=== PATIENT | male | born 1925 | race Caucasian/White ===

== ENCOUNTER 2016-04-24 15:09 | Emergency (ER) | payer MEDICARE, BC ==
[~2016-04-24] VITALS: Ht 182.9 cm; Wt 70.0 kg
[~2016-04-24 15:09] MED LIST: COUM2.5T PO; COUM5TAB PO; DIGO50SO PO; HYDR-3533 PO; NORV5TAB PO
[2016-04-24 15:15] VITALS: BP 136/79; PULSE 72; RESP 16; TEMP 98.1; O2SAT 98
[2016-04-24] MEDS ORDERED: PIPERACIL-TAZO 4.5 GM PREMIX 100 ML IV STA (15:26)
[2016-04-24] MEDS ORDERED: UNKNOWN MEDS (15:26)
[2016-04-24] MEDS ORDERED: COUMADIN (15:26)
--- NOTE | 2016-04-24 15:37 | PD ---
HPI . Swelling of his left foot and lower leg Chief Complaint: Edema Time Seen by Provider: 15:21 Travel History International Travel<30 days: No Contact w/Intl Traveler<30days: No Traveled to known affect area: No History of Present Illness HPI Patient presents with a one-week history of swelling of his left foot and lower leg. There is also a sore on the dorsum of the left foot this been there for about a week. Been draining serous fluid. He denies associated fever. He denies any chest pain or shortness of breath. He reports a similar history about a month ago except that there was no sore on the foot at that time. His leg was just red and swollen. He was treated with Keflex with excellent results. He did well following the antibiotic treatment until a week ago when his symptoms recurred. [facility] Past Medical History Hx Anticoagulant Therapy: Yes Cardiovascular Problems: Yes Diminished Hearing: Yes Hypertension: Yes Immunizations Current: Yes Past Surgical History Genitourinary Surgery: Yes (prostate) Social History Alcohol Use: No Tobacco Use: No (QUIT) Substance Use: No Allergies-Medications (Allergen,Severity, Reaction): Coded Allergies: No Known Allergies (Unverified , 04/24/16) Reported Meds & Prescriptions Reported Meds & Active Scripts Active Reported [Unknown Meds] Unknown Dose [Coumadin] Unknown Dose Review of Systems Except as stated in HPI: all other systems reviewed are Neg General / Constitutional: No: Fever, Chills Cardiovascular: No: Chest Pain or Discomfort Respiratory: No: Shortness of Breath Gastrointestinal: No: Nausea, Vomiting, Diarrhea Musculoskeletal: Positive: Edema Skin: Positive Change in Pigmentation Physical Exam Narrative GENERAL: Healthy-appearing older man who is in no acute distress. SKIN: Warm and dry. The skin of the dorsum of the left foot is red and warm. The redness extends proximally into the left ankle area. There is an ulcerative lesion on the dorsum of the left foot draining serous fluid. HEAD: Atraumatic. Normocephalic. EYES: Pupils equal and round. ENT: No nasal bleeding or discharge. Mucous membranes pink and moist. NECK: Trachea midline. CARDIOVASCULAR: Regular rate and rhythm. RESPIRATORY: No accessory muscle use. GASTROINTESTINAL: Abdomen soft, non-tender, nondistended. MUSCULOSKELETAL: No obvious deformities. Some swelling of the left lower extremity. NEUROLOGICAL: Awake and alert. No obvious cranial nerve deficits. Motor grossly within normal limits. Normal speech. PSYCHIATRIC: Appropriate mood and affect; insight and judgment normal. Data Data Last Documented VS Vital Signs Date Time Temp Pulse Resp B/P Pulse Ox O2 Delivery O2 Flow Rate FiO2 04/24/16 15:15 98.1 72 16 136/79 98 Orders Complete Blood Count With Diff (04/24/16 15:26) Comprehensive Metabolic Panel (04/24/16 15:) Lactic Acid Sepsis Protocol (04/24/16 15:) Blood Culture (04/24/16 15:) Iv Access Insert/Monitor (04/24/16 15:26) Piperacil-Tazo 4.5 Gm Premix (Zosyn 4.5 (04/24/16 15:26) Us Leg Venous Doppler (04/24/16 15:29) MDM Medical Decision Making Medical Screen Exam Complete: Yes Emergency Medical Condition: Yes Differential Diagnosis My differential diagnosis includes but is not limited to localized wound infection, cellulitis, abscess, DVT Narrative Course Patient presents for evaluation of a swollen and erythematous left lower extremity. His care is being turned over to Dr. Sifuentes. Nnacy Sadler MD Apr 24, 2016 15:37
[2016-04-24 15:45] LABS: AUTOMATED NEUTROPHIL # 4.8 TH/MM3 (1.8-7.7); BASOPHIL % 0.7 % (0.0-2.0); EOSINOPHIL % 0.6 % (0.0-4.0); HEMATOCRIT 37.8 % (39.0-51.0); HEMO FLAGS DIFF FINAL; LYMPH % 20.2 % (9.0-44.0); LYMPHOCYTE # 1.4 TH/MM3 (1.0-4.8); MEAN CELL VOLUME 92.6 FL (80.0-100.0); MEAN CORPUSCULAR HEMOGLOBIN 30.8 PG (27.0-34.0); MEAN CORPUSCULAR HGB CONC 33.3 % (32.0-36.0); NEUT % 68.5 % (16.0-70.0); PLATELET COUNT 385 TH/MM3 (150-450); RED BLOOD COUNT 4.08 MIL/MM3 (4.50-5.90); RED CELL DISTRIBUTION WIDTH 13.3 % (11.6-17.2); WHITE BLOOD COUNT 6.9 TH/MM3 (4.0-11.0)
[2016-04-24 15:55] LABS: CHLORIDE 106 MEQ/L (98-107); POTASSIUM 3.1 MEQ/L (3.5-5.1); SODIUM (NA) 146 MEQ/L (136-145)
[2016-04-24 15:58] LABS: ANION GAP 10 MEQ/L (5-15); BICARBONATE 29.7 MEQ/L (21.0-32.0)
[2016-04-24 15:59] LABS: BLOOD UREA NITROGEN 13 MG/DL (7-18)
[2016-04-24 16:01] LABS: ALT (GPT) 17 U/L (12-78)
[2016-04-24 16:02] LABS: AST (GOT) 15 U/L (15-37); GLOMERULAR FILTRATION RATE 57 ML/MIN (>89)
[2016-04-24 16:03] LABS: TOTAL BILIRUBIN ADULT 0.7 MG/DL (0.2-1.0)
[2016-04-24 16:04] LABS: ALKALINE PHOSPHATASE 116 U/L (45-117)
[2016-04-24] MEDS ORDERED: VANCOMYCIN INJ 1,000 MG in SODIUM CHLOR 0.9% 250 ML INJ 250 ML IV ONE (16:15)
[2016-04-24] MEDS ORDERED: LIDOCAINE 1%/EPINEPHrine 1:100,000 SOLN 20 ML VIAL INFIL ONE (16:15)
--- NOTE | 2016-04-24 16:31 | PD ---
Physical Exam Narrative Patient was seen any physician and signed out to me. Patient states that he has history of irregular heartbeats and on Coumadin and digoxin. Examination of the left foot shows redness swelling induration with an ulcer lesion dorsal aspect left foot. No discharge noted. Data Data Last Documented VS Vital Signs Date Time Temp Pulse Resp B/P Pulse Ox O2 Delivery O2 Flow Rate FiO2 04/24/16 15:15 98.1 72 16 136/79 98 Orders Complete Blood Count With Diff (04/24/16 15:26) Comprehensive Metabolic Panel (04/24/16 15:26) Lactic Acid Sepsis Protocol (04/24/16 15:26) Blood Culture (04/24/16 15:26) Iv Access Insert/Monitor (04/24/16 15:26) Piperacil-Tazo 4.5 Gm Premix (Zosyn 4.5 (04/24/16 15:26) Us Leg Venous Doppler (04/24/16 15:29) Prothrombin Time / Inr (Pt) (04/24/16 16:11) Act Partial Throm Time (Ptt) (04/24/16 16:11) Wound Culture And Gram Stain (04/24/16 16:11) Vancomycin Inj (Vancomycin Inj) (04/24/16 16:15) Lidocai-Epi 1%-1:100,000 Inj (Xylocaine- (04/24/16 16:15) Digoxin (04/24/16 16:32) Labs Laboratory Tests Test 04/24/16 04/24/16 15:35 16:15 White Blood Count 6.9 TH/MM3 Red Blood Count 4.08 MIL/MM3 Hemoglobin 12.6 GM/DL Hematocrit 37.8 % Mean Corpuscular Volume 92.6 FL Mean Corpuscular Hemoglobin 30.8 PG Mean Corpuscular Hemoglobin 33.3 % Concent Red Cell Distribution Width 13.3 % Platelet Count 385 TH/MM3 Mean Platelet Volume 7.3 FL Neutrophils (%) (Auto) 68.5 % Lymphocytes (%) (Auto) 20.2 % Monocytes (%) (Auto) 10.0 % Eosinophils (%) (Auto) 0.6 % Basophils (%) (Auto) 0.7 % Neutrophils # (Auto) 4.8 TH/MM3 Lymphocytes # (Auto) 1.4 TH/MM3 Monocytes # (Auto) 0.7 TH/MM3 Eosinophils # (Auto) 0.0 TH/MM3 Basophils # (Auto) 0.0 TH/MM3 CBC Comment DIFF FINAL Differential Comment Sodium Level 146 MEQ/L Potassium Level 3.1 MEQ/L Chloride Level 106 MEQ/L Carbon Dioxide Level 29.7 MEQ/L Anion Gap 10 MEQ/L Blood Urea Nitrogen 13 MG/DL Creatinine 1.20 MG/DL Estimat Glomerular Filtration 57 ML/MIN Rate Random Glucose 105 MG/DL Lactic Acid Level 1.1 mmol/L Calcium Level 9.0 MG/DL Total Bilirubin 0.7 MG/DL Aspartate Amino Transf 15 U/L (AST/SGOT) Alanine Aminotransferase 17 U/L (ALT/SGPT) Alkaline Phosphatase 116 U/L Total Protein 7.1 GM/DL Albumin 3.4 GM/DL Digoxin Level 0.7 NG/ML Prothrombin Time 32.7 SEC Prothromb Time International 2.8 RATIO Ratio Activated Partial 36.4 SEC Thromboplast Time MDM Supervised Visit with BEVERLY: No Interpretation(s) Last Impressions Lower Extremity Ultrasound 04/24/16 1529 Signed Impressions: Service Date/Time: Sunday, April 24, 2016 16:29 - CONCLUSION: Normal examination. Eren Miller Jr., MD 1735 PM. CBC within normal limit. Sodium 146. Potassium 3.1. Lactic acid 1.1. INR 2.8. Digoxin 0.7. Narrative Course I&D left foot abscess. Dressing applied. Procedures Procedure Narrative I&D left foot Procedure note: 1% lidocaine with epinephrine local anesthesia. Betadine wash. Small incision was made with #11 scalpel. A small mild of pus obtained. Wound culture obtained. Dressing applied. Diagnosis Primary Impression: Foot abscess, left Patient Instructions: General Instructions Additional Instruction: Take medications as directed. Wound care daily. Keep foot elevated. Follow- up with local physician in 2 days for wound check and repeated INR. Have INR check frequently while on antibiotic. Med/Other Pt SpecificInfo: Prescription(s) given Scripts Clindamycin 150 Mg Cap2 Tab PO Q6H #80 CAP Prov:Jayme Sifuentes MD 04/24/16 Sulfamethoxazole-Trimethoprim (Bactrim DS)800-160 Mg Tab1 Tab PO BID #20 TAB Prov:Jayme Sifuentes MD 04/24/16 Disposition: 01 DISCHARGE HOME Condition: Stable Jayme Sifuentes MD Apr 24, 2016 16:31
[2016-04-24] MEDS ORDERED: BACT800T5 PO (16:34)
[2016-04-24] MEDS ORDERED: CLIN1CAP5 PO (16:34)
[2016-04-24 16:35] LABS: APTT (PATIENT) 36.4 SEC (24.3-30.1); INTERNATIONAL NORMALIZED RATIO 2.8 RATIO; PROTHROMBIN TIME - PATIENT 32.7 SEC (9.8-11.6)
--- NOTE | 2016-04-24 16:54 | RADHPO ---
EXAM DATE/TIME: 04/24/2016 16:29 [facility] COMPARISON: No previous studies available for comparison. EXTERNAL COMPARISON : [facility], US LEG, LEFT VENOUS DOPPLER, March 18, 2016 INDICATIONS : Left leg pain, cellulitis. MEDICAL HISTORY : Hypertension. Anticoagulant therapy. SURGICAL HISTORY : None. ENCOUNTER: Subsequent ACUITY: 2 day PAIN SCORE: 5/10 LOCATION: Left leg. TECHNIQUE: Venous ultrasound of the leg was performed from the inguinal ligament to the proximal calf. Real-lillie e, color Doppler and spectral tracing, compression and augmentation techniques were used. FINDINGS: There is normal compressibility of the deep venous system from the inguinal region to the proximal ca lf. No echogenic clot is seen in the lumen of the common femoral, femoral, popliteal, and posterior tibial veins. There is a normal response of the venous system to proximal and distal augmentation an d respiration. CONCLUSION: Normal examination. Eren Miller Jr., MD on April 24, 2016 at 16:51 Board Certified Radiologist. This report was verified electronically.
== END 2016-04-24 18:08 | disposition home or self-care (01) ==
LOC: PHED 15:09
DX: Z79.01 Long term (current) use of anticoagulants (principal); I10 Essential (primary) hypertension; L02.612 Cutaneous abscess of left foot
CPT/HCPCS: 10060; 80053; 80162; 83605; 85025; 85610; 85730; 86403; 87040; 87070; 87077; 87186; 87205; 93971; 96365; 99284; J2543

== ENCOUNTER 2016-04-27 09:53 | Emergency (ER) | payer MEDICARE, BC ==
[~2016-04-27] VITALS: Ht 182.9 cm; Wt 71.0 kg
[~2016-04-27 09:53] MED LIST changes: +BACT800T5 PO; +CLIN1CAP5 PO; -COUM2.5T PO; -COUM5TAB PO; +COUMADIN; -DIGO50SO PO; -HYDR-3533 PO; -NORV5TAB PO; +UNKNOWN MEDS
[2016-04-27 10:04] VITALS: BP 124/59; PULSE 63; RESP 16; TEMP 98.2; O2SAT 97
[2016-04-27] MEDS ORDERED: COUM1TAB PO (10:12)
--- NOTE | 2016-04-27 10:35 | PD ---
HPI . Recheck of cellulitis Chief Complaint: Wound/Suture/Staple Re-Check Time Seen by Provider: 10:28 Travel History International Travel<30 days: No Contact w/Intl Traveler<30days: No Traveled to known affect area: No History of Present Illness HPI Patient is here for recheck of cellulitis in the left foot. He was seen here 2 days ago for same and was placed on clindamycin and Septra. His foot is much improved. His main question is whether or not he should shower. They are also questioning whether or not it needs to be covered and whether or not they need to be putting any medication on it. PFSH Past Medical History Hx Anticoagulant Therapy: Yes Cardiovascular Problems: Yes Diminished Hearing: Yes Hypertension: Yes Immunizations Current: Yes Past Surgical History Genitourinary Surgery: Yes (prostate) Social History Alcohol Use: No Tobacco Use: No (QUIT) Substance Use: No Allergies-Medications (Allergen,Severity, Reaction): Coded Allergies: No Known Allergies (Unverified , 04/27/16) Reported Meds & Prescriptions Reported Meds & Active Scripts Active Clindamycin (Clindamycin HCl) 150 Mg Cap 2 Tab PO Q6H Bactrim DS (Sulfamethoxazole-Trimethoprim) 800-160 Mg Tab 1 Tab PO BID Reported Coumadin (Warfarin) 1 Mg Tab Unknown Dose PO DAILY Review of Systems General / Constitutional: No: Fever, Chills Skin: Positive Change in Pigmentation (the redness is improving.), Positive Lesions (the ulcerative lesion on the dorsum of his foot and has now scabbed over.) Physical Exam Narrative GENERAL: Awake and alert and in no acute distress. SKIN: Warm and dry. Scabbed lesion on the dorsal aspect of the left foot. He does have some erythema and warmth of the left foot and ankle but it is improved from 2 days ago. I did see him at that time. CARDIOVASCULAR: Regular rate and rhythm. RESPIRATORY: No accessory muscle use. MUSCULOSKELETAL: No obvious deformities. No edema. NEUROLOGICAL: Awake and alert. No obvious cranial nerve deficits. Motor grossly within normal limits. Normal speech. PSYCHIATRIC: Appropriate mood and affect; insight and judgment normal. Data Data Last Documented VS Vital Signs Date Time Temp Pulse Resp B/P Pulse Ox O2 Delivery O2 Flow Rate FiO2 04/27/16 10:04 98.2 63 16 124/59 97 MDM Medical Decision Making Medical Screen Exam Complete: Yes Emergency Medical Condition: Yes Differential Diagnosis My differential diagnosis includes but is not limited to localized wound infection, cellulitis, abscess Narrative Course Patient presents for recheck of cellulitis of the left. His foot and leg looked much improved today. Diagnosis Primary Impression: Cellulitis Qualified Code: L03.116 - Cellulitis of left lower extremity Additional Instructions: Continue current treatment. He may shower normally. He may use an over-the- counter antibiotic ointment such as Neosporin. Disposition: 01 DISCHARGE HOME Condition: Stable Nancy Sadler MD Apr 27, 2016 10:35
== END 2016-04-27 10:54 | disposition home or self-care (01) ==
LOC: PHEFT 09:53
DX: L03.116 Cellulitis of left lower limb (principal)
CPT/HCPCS: 99282

== ENCOUNTER 2016-05-08 15:05 | Emergency (ER) | payer MEDICARE, BC ==
[~2016-05-08] VITALS: Ht 182.9 cm; Wt 70.9 kg
[~2016-05-08 15:05] MED LIST changes: +COUM1TAB PO; -COUMADIN; -UNKNOWN MEDS
[2016-05-08 15:12] VITALS: BP 139/78; PULSE 61; RESP 16; TEMP 98; O2SAT 97
[2016-05-08] MEDS ORDERED: SODIUM CHLORIDE 0.9% FLUSH 5 ML FLUSH IVF PRN (16:15)
--- NOTE | 2016-05-08 16:16 | PD ---
HPI Chief Complaint: Edema Time Seen by Provider: 16:00 Travel History International Travel<30 days: No Contact w/Intl Traveler<30days: No Traveled to known affect area: No History of Present Illness HPI 89-year-old male here for evaluation of left ankle and foot swelling. The patient was seen on 04/24/16 and had an I&D of an abscess on the dorsal aspect of his left foot. This grew out Serratia marcescens. The patient was discharged home with Bactrim and clindamycin and was seen in the emergency department 2 days later with improvement in symptoms. The patient also had a blood culture performed at this time which grew out staph hominis hominis. This is likely a contaminant. He has finished his course of antibiotics, and is concerned because his foot and ankle is still swollen with an area of redness on the dorsum of the foot. Patient is on Coumadin, however he is unable to tell me why he is on Coumadin. I contacted his primary care physician Dr. Zayas who tells me that he is on Coumadin because of a postoperative DVT. Patient denies fevers or chills. No chest pain or dyspnea. He denies pain in his left ankle or foot. No trauma. PFSH Past Medical History Hx Anticoagulant Therapy: Yes Cardiovascular Problems: Yes Diminished Hearing: Yes Hypertension: Yes Immunizations Current: Yes Past Surgical History Genitourinary Surgery: Yes (prostate) Social History Alcohol Use: No Tobacco Use: No (QUIT) Substance Use: No Allergies-Medications (Allergen,Severity, Reaction): Coded Allergies: No Known Allergies (Unverified , 05/08/16) Reported Meds & Prescriptions Reported Meds & Active Scripts Active Reported Coumadin (Warfarin) 1 Mg Tab Unknown Dose PO DAILY Review of Systems Except as stated in HPI: all other systems reviewed are Neg Physical Exam Narrative GENERAL: Well-developed, well-nourished, comfortable, no acute distress. SKIN: Warm and dry. Mild erythema to the dorsum of left foot, no red streaks, no induration, no fluctuance. HEAD: Atraumatic. Normocephalic. EYES: Pupils equal and round. No scleral icterus. No injection or drainage. ENT: Mucous membranes pink and moist. NECK: Trachea midline. No JVD. CARDIOVASCULAR: Regular rate and rhythm. Bilateral dorsalis pedis pulses are brisk and equal. RESPIRATORY: No accessory muscle use. Clear to auscultation. Breath sounds equal bilaterally. GASTROINTESTINAL: Abdomen soft, non-tender, nondistended. MUSCULOSKELETAL: No obvious deformities. No clubbing. No cyanosis. Bilateral foot and ankle edema, left greater than right. NEUROLOGICAL: Awake and alert. No obvious cranial nerve deficits. Motor grossly within normal limits. Normal speech. PSYCHIATRIC: Appropriate mood and affect; insight and judgment normal. Data Data Last Documented VS Vital Signs Date Time Temp Pulse Resp B/P Pulse Ox O2 Delivery O2 Flow Rate FiO2 05/08/16 17:25 Room Air 05/08/16 17:25 77 16 169/79 94 05/08/16 15:12 98.0 Orders Basic Metabolic Panel (Bmp) (05/08/16 16:07) Complete Blood Count With Diff (05/08/16 16:07) Prothrombin Time / Inr (Pt) (05/08/16 16:07) Act Partial Throm Time (Ptt) (05/08/16 16:07) Iv Access Insert/Monitor (05/08/16 16:07) Ecg Monitoring (05/08/16 16:07) Oximetry (05/08/16 16:07) Sodium Chloride 0.9% Flush (Ns Flush) (05/08/16 16:15) Us Leg Venous Doppler (05/08/16 ) Labs Laboratory Tests Test 05/08/16 16:23 White Blood Count 7.1 TH/MM3 Red Blood Count 4.18 MIL/MM3 Hemoglobin 12.8 GM/DL Hematocrit 39.2 % Mean Corpuscular Volume 93.8 FL Mean Corpuscular Hemoglobin 30.5 PG Mean Corpuscular Hemoglobin 32.5 % Concent Red Cell Distribution Width 14.1 % Platelet Count 244 TH/MM3 Mean Platelet Volume 7.6 FL Neutrophils (%) (Auto) 61.3 % Lymphocytes (%) (Auto) 27.0 % Monocytes (%) (Auto) 9.6 % Eosinophils (%) (Auto) 1.2 % Basophils (%) (Auto) 0.9 % Neutrophils # (Auto) 4.3 TH/MM3 Lymphocytes # (Auto) 1.9 TH/MM3 Monocytes # (Auto) 0.7 TH/MM3 Eosinophils # (Auto) 0.1 TH/MM3 Basophils # (Auto) 0.1 TH/MM3 CBC Comment DIFF FINAL Differential Comment Prothrombin Time 12.7 SEC Prothromb Time International 1.1 RATIO Ratio Activated Partial 27.5 SEC Thromboplast Time Sodium Level 142 MEQ/L Potassium Level 3.8 MEQ/L Chloride Level 104 MEQ/L Carbon Dioxide Level 29.3 MEQ/L Anion Gap 9 MEQ/L Blood Urea Nitrogen 16 MG/DL Creatinine 1.10 MG/DL Estimat Glomerular Filtration 63 ML/MIN Rate Random Glucose 94 MG/DL Calcium Level 9.2 MG/DL [facility] Medical Decision Making Medical Screen Exam Complete: Yes Emergency Medical Condition: Yes Differential Diagnosis Cellulitis, lymphedema, venous insufficiency, DVT Narrative Course Vital signs show heart rate 61, blood pressure 139/78, pulse ox 97% on room air , oral temp of 98F. CBC is unremarkable. BMP is unremarkable. INR is 1.1. Left lower extremity duplex is negative for DVT. Patient was made aware of all findings. He is resting comfortably. There is some mild erythema to the dorsum of his left foot. There is no warmth. I do not believe this infectious and is likely more secondary to the skin being stretched from his edema. He has no fever and has a normal WBC count. His vital signs are all within normal limits. My nurse who is assigned to this patient and had seen the patient during his previous 2 visits when he had an obvious cellulitis to his left lower extremity and reports to me that it is significantly improved. He will take a double dose of his Coumadin for the next 3 days. Case discussed with the patient's primary care physician Dr. Zayas shortly after he arrived to the emergency department. He would like the patient to call his office tomorrow morning to schedule an appointment for tomorrow afternoon. The patient was made aware of this plan. He was informed on when to return to the emergency department. He verbalizes understanding and agreement with plan. Diagnosis Primary Impression: Edema of left foot Referrals: Astrid Zayas MD 1 day Additional Instructions: Follow-up with your primary care physician Dr. Zayas tomorrow. Return to the emergency department for worsening symptoms or any other concerns. Disposition: 01 DISCHARGE HOME Condition: Stable Reagan Gee MD May 08, 2016 16:16
[2016-05-08 16:23] VITALS: BP 174/78; PULSE 60; RESP 16; O2SAT 97
[2016-05-08 16:27] LABS: AUTOMATED NEUTROPHIL # 4.3 TH/MM3 (1.8-7.7); BASOPHIL # 0.1 TH/MM3 (0-0.2); BASOPHIL % 0.9 % (0.0-2.0); EOSINOPHIL # 0.1 TH/MM3 (0-0.4); EOSINOPHIL % 1.2 % (0.0-4.0); HEMATOCRIT 39.2 % (39.0-51.0); HEMO FLAGS DIFF FINAL; LYMPHOCYTE # 1.9 TH/MM3 (1.0-4.8); MEAN CELL VOLUME 93.8 FL (80.0-100.0); MEAN CORPUSCULAR HEMOGLOBIN 30.5 PG (27.0-34.0); MEAN CORPUSCULAR HGB CONC 32.5 % (32.0-36.0); MONO % 9.6 % (0.0-8.0); NEUT % 61.3 % (16.0-70.0); PLATELET COUNT 244 TH/MM3 (150-450); RED BLOOD COUNT 4.18 MIL/MM3 (4.50-5.90); RED CELL DISTRIBUTION WIDTH 14.1 % (11.6-17.2); WHITE BLOOD COUNT 7.1 TH/MM3 (4.0-11.0)
[2016-05-08 16:35] LABS: POTASSIUM 3.8 MEQ/L (3.5-5.1)
[2016-05-08 16:38] LABS: BICARBONATE 29.3 MEQ/L (21.0-32.0)
[2016-05-08 16:39] LABS: APTT (PATIENT) 27.5 SEC (24.3-30.1); INTERNATIONAL NORMALIZED RATIO 1.1 RATIO; PROTHROMBIN TIME - PATIENT 12.7 SEC (9.8-11.6)
--- NOTE | 2016-05-08 17:21 | RADHPO ---
EXAM DATE/TIME: 05/08/2016 17:04 [facility] COMPARISON: US LEG LEFT VENOUS DOPPLER, April 24, 2016, 16:29. INDICATIONS : Left leg pain and swelling. MEDICAL HISTORY : Hypertension. SURGICAL HISTORY : Prostatectomy. ENCOUNTER: Initial ACUITY: 3 days PAIN SCORE: 2/10 LOCATION: Left leg. TECHNIQUE: Venous ultrasound of the leg was performed from the inguinal ligament to the proximal calf. Real-lillie e, color Doppler and spectral tracing, compression and augmentation techniques were used. FINDINGS: There is normal compressibility of the deep venous system from the inguinal region to the proximal ca lf. No echogenic clot is seen in the lumen of the common femoral, femoral, popliteal, and posterior tibial veins. There is a normal response of the venous system to proximal and distal augmentation an d respiration. CONCLUSION: 1. No evidence of deep venous thrombosis. Forest Alvarenga MD on May 08, 2016 at 17:19 Board Certified Radiologist. This report was verified electronically.
[2016-05-08 17:25] VITALS: BP 169/79; PULSE 77; RESP 16; O2SAT 94
== END 2016-05-08 18:20 | disposition home or self-care (01) ==
LOC: PHED 15:05
DX: R60.9 Edema, unspecified (principal); I10 Essential (primary) hypertension; H91.90 Unspecified hearing loss, unspecified ear; Z79.01 Long term (current) use of anticoagulants
CPT/HCPCS: 80048; 85025; 85610; 85730; 93971

== ENCOUNTER 2016-07-07 09:33 | Emergency (ER) | payer MEDICARE, BC ==
[~2016-07-07] VITALS: Ht 182.9 cm; Wt 73.5 kg
[~2016-07-07 09:33] MED LIST changes: -BACT800T5 PO; -CLIN1CAP5 PO
[2016-07-07 09:38] VITALS: BP 137/64; PULSE 68; RESP 15; TEMP 97.7; O2SAT 98
[2016-07-07] MEDS ORDERED: CEPH-460 PO (09:52)
[2016-07-07] MEDS ORDERED: BACT2OIN TOPICAL (09:52)
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
[2016-07-07] MEDS ORDERED: TETANUS/DIPHTHERIA TOXOID ADULT 0.5 ML VIAL IM ONE (10:00)
== END 2016-07-07 10:16 | disposition home or self-care (01) ==
LOC: PHEFT 09:33
DX: S50.811A Abrasion of right forearm, initial encounter (principal); Z79.01 Long term (current) use of anticoagulants; I10 Essential (primary) hypertension; Z87.891 Personal history of nicotine dependence
CPT/HCPCS: 99282

== ENCOUNTER 2016-07-11 10:01 | Emergency (ER) | payer MEDICARE, BC ==
[~2016-07-11] VITALS: Ht 182.9 cm; Wt 74.0 kg
[~2016-07-11 10:01] MED LIST changes: +BACT2OIN TOPICAL; +CEPH-460 PO
[2016-07-11 10:05] VITALS: BP 150/69; PULSE 64; RESP 16; TEMP 97.7; O2SAT 99
--- NOTE | 2016-07-11 10:40 | PD ---
HPI Chief Complaint: Wound/Suture/Staple Re-Check Time Seen by Provider: 10:36 Travel History International Travel<30 days: No Contact w/Intl Traveler<30days: No Traveled to known affect area: No History of Present Illness HPI 89-year-old male with history of recent visit for right arm wound, was put on Keflex, is here because he wanted to get the wound checked out. He stated that he has some itching in his back the other day, went to get that checked out as well because they had instructed him to do so should he develop any new symptoms. He denies any trouble breathing, coughing, facial swelling, rashes, or any other issues. Modifying Factors: None Associated Signs & Symptoms: Wound check Risk Factors: None PFSH Past Medical History Hx Anticoagulant Therapy: Yes (COUMADIN) Atrial Fibrillation: Yes Cardiovascular Problems: Yes Diminished Hearing: Yes Hypertension: Yes Immunizations Current: Yes Past Surgical History Genitourinary Surgery: Yes (prostate) Social History Alcohol Use: Yes Tobacco Use: No (QUIT) Substance Use: No Allergies-Medications (Allergen,Severity, Reaction): Coded Allergies: No Known Allergies (Unverified , 07/11/16) Reported Meds & Prescriptions Reported Meds & Active Scripts Active Bactroban Topical (Mupirocin) 2% Oint 1 Applic TOPICAL BID Keflex (Cephalexin) 500 Mg Cap 500 Mg PO Q6H 7 Days Reported Coumadin (Warfarin) 1 Mg Tab Unknown Dose PO DAILY Review of Systems Except as stated in HPI: all other systems reviewed are Neg Physical Exam Narrative GENERAL: Pleasant well-developed elderly white male patient currently not in acute distress. Awake and oriented 3. SKIN: Focused skin assessment warm/dry. I see some excoriations of the left lower back region but no significant rashes. No urticaria. HEAD: Atraumatic. Normocephalic. EYES: Pupils equal and round. No scleral icterus. No injection or drainage. ENT: No nasal bleeding or discharge. Mucous membranes pink and moist. No mucous membrane lesions or angioedema. NECK: Trachea midline. No JVD. CARDIOVASCULAR: Regular rate and rhythm. No murmur appreciated. RESPIRATORY: No accessory muscle use. Clear to auscultation. Breath sounds equal bilaterally. GASTROINTESTINAL: Abdomen soft, non-tender, nondistended. Hepatic and splenic margins not palpable. MUSCULOSKELETAL: No obvious deformities. No clubbing. No cyanosis. No edema. NEUROLOGICAL: Awake and alert. No obvious cranial nerve deficits. Motor grossly within normal limits. Normal speech. PSYCHIATRIC: Appropriate mood and affect; insight and judgment normal. Right arm: There is a clean-based shallow skin ulcer with no significant surrounding erythema or edema at this time. Data Data Last Documented VS Vital Signs Date Time Temp Pulse Resp B/P Pulse Ox O2 Delivery O2 Flow Rate FiO2 07/11/16 10:05 97.7 64 16 150/69 99 MDM Medical Decision Making Medical Screen Exam Complete: Yes Emergency Medical Condition: Yes Medical Record Reviewed: Yes Differential Diagnosis Wound check Narrative Course Wound appears to be healing well. Patient is currently on Keflex for several days. I do not see any signs of allergic reaction in this case. He has some excoriations on his left back but no other signs of acute issues. He is not having any itchiness now. At this point, I would keep him on the Keflex and have her follow-up with primary care physician next week as appointed. He should return for any worsening in symptoms, signs of worsening wound infection and as needed. The plan has been discussed with the patient and he states understanding. Diagnosis Primary Impression: Avulsion of skin of forearm Additional Impression: Visit for wound check Disposition: DISCHARGE HOME Condition: Stable Aishwarya Nair MD July 11, 2016 10:40
== END 2016-07-11 10:59 | disposition home or self-care (01) ==
LOC: PHEFT 10:01
DX: Z51.89 Encounter for other specified aftercare (principal); I10 Essential (primary) hypertension; I48.91 Unspecified atrial fibrillation; Z79.01 Long term (current) use of anticoagulants; Z79.899 Other long term (current) drug therapy; Z87.891 Personal history of nicotine dependence
CPT/HCPCS: 99282

== ENCOUNTER 2017-02-05 14:35 | Emergency (ER) | payer MEDICARE, BC ==
[~2017-02-05] VITALS: Ht 182.9 cm; Wt 79.0 kg
[2017-02-05 14:41] VITALS: BP 135/63; PULSE 63; RESP 16; TEMP 97.9; O2SAT 98
--- NOTE | 2017-02-05 15:04 | PD ---
HPI Chief Complaint: Edema Time Seen by Provider: 14:49 Travel History International Travel<30 days: No Contact w/Intl Traveler<30days: No Traveled to known affect area: No History of Present Illness HPI This 89-year-old male presents with complaint of swelling and pain of his legs. He's having pain in the RIGHT thigh. Both of his legs have been quite swollen. He says they've been swollen for some time. He says that he takes Coumadin who is not sure why he takes Coumadin. He takes one other pill also. He is not aware of any injury. He is not aware of a history of CHF or liver disease. He has lived alone for 3 years since his . He is from [place]. He does not smoke. He has not been short of breath. He denies any chest pain. PFSH Past Medical History Hx Anticoagulant Therapy: Yes (COUMADIN - DOESN'T KNOW WHY) Atrial Fibrillation: Yes Cardiovascular Problems: Yes (HTN) Diabetes: No Diminished Hearing: Yes Hypertension: Yes Immunizations Current: Yes Past Surgical History Genitourinary Surgery: Yes (prostate) Social History Alcohol Use: Yes Tobacco Use: No (QUIT) Substance Use: No Allergies-Medications (Allergen,Severity, Reaction): Coded Allergies: No Known Allergies (Unverified Adverse Reaction, Unknown, 02/05/17) Reported Meds & Prescriptions Reported Meds & Active Scripts Active Lasix (Furosemide) 20 Mg Tab 20 Mg PO DAILY Reported Digoxin 0.125 Mg Tab 0.125 Mg PO DAILY Amlodipine (Amlodipine Besylate) 10 Mg Tab 10 Mg PO DAILY Lasix (Furosemide) 20 Mg Tab 20 Mg PO DAILY Coumadin (Warfarin) 2.5 Mg Tab 2.5 Mg PO DIRECTED Coumadin (Warfarin) 5 Mg Tab 5 Mg PO DIRECTED Review of Systems General / Constitutional: No: Fever, Chills Eyes: No: Diploplia, Blurred Vision HENT: No: Headaches Cardiovascular: Positive: Edema, No: Chest Pain or Discomfort, Palpitations Respiratory: No: Cough, Shortness of Breath Gastrointestinal: No: Vomiting, Diarrhea Genitourinary: No: Urgency Skin: No Rash Neurologic: No: Syncope Psychiatric: No: Anxiety Hematologic/Lymphatic: Positive: Easy Bruising Physical Exam Narrative GENERAL: Well-developed male SKIN: Focused skin assessment warm/dry. HEAD: Atraumatic. Normocephalic. EYES: Pupils equal and round. No scleral icterus. No injection or drainage. ENT: No nasal bleeding or discharge. Mucous membranes pink and moist. NECK: Trachea midline. No JVD. CARDIOVASCULAR: Irregular rate and rhythm. No murmur appreciated. RESPIRATORY: No accessory muscle use. Clear to auscultation. Breath sounds equal bilaterally. GASTROINTESTINAL: Abdomen soft, non-tender, nondistended. Hepatic and splenic margins not palpable. MUSCULOSKELETAL: No obvious deformities. No clubbing. No cyanosis. There is bilateral pedal edema. The right leg is more swollen than the left. There is ecchymosis on the medial aspect of the knee and also the posterior portion of the thigh and calf. He moves the leg well, there is no bony tenderness NEUROLOGICAL: Awake and alert. No obvious cranial nerve deficits. Motor grossly within normal limits. Normal speech. PSYCHIATRIC: Appropriate mood and affect; insight and judgment normal. Data Data Last Documented VS Vital Signs Date Time Temp Pulse Resp B/P (MAP) Pulse Ox O2 Delivery O2 Flow Rate FiO2 02/05/17 15:16 56 16 98 Room Air 02/05/17 14:41 97.9 135/63 (87) Orders Orders Electrocardiogram (02/05/17 15:01) Complete Blood Count With Diff (02/05/17 15:01) Comprehensive Metabolic Panel (02/05/17 15:01) B-Type Natriuretic Peptide (02/05/17 15:01) Prothrombin Time / Inr (Pt) (02/05/17 15:01) Act Partial Throm Time (Ptt) (02/05/17 15:01) Urinalysis - C+S If Indicated (02/05/17 15:01) Chest, Single Ap (02/05/17 15:01) Us Leg Venous Doppler (02/05/17 15:08) Digoxin (02/05/17 15:30) Potassium Chloride (Kcl) (02/05/17 16:00) ^ Home Health (02/05/17 15:57) Labs Laboratory Tests Test 02/05/17 15:36 White Blood Count 7.6 TH/MM3 Red Blood Count 3.60 MIL/MM3 Hemoglobin 10.5 GM/DL Hematocrit 33.2 % Mean Corpuscular Volume 92.2 FL Mean Corpuscular Hemoglobin 29.2 PG Mean Corpuscular Hemoglobin Concent 31.7 % Red Cell Distribution Width 13.4 % Platelet Count 229 TH/MM3 Mean Platelet Volume 7.3 FL Neutrophils (%) (Auto) 67.2 % Lymphocytes (%) (Auto) 16.4 % Monocytes (%) (Auto) 14.5 % Eosinophils (%) (Auto) 1.4 % Basophils (%) (Auto) 0.5 % Neutrophils # (Auto) 5.2 TH/MM3 Lymphocytes # (Auto) 1.2 TH/MM3 Monocytes # (Auto) 1.1 TH/MM3 Eosinophils # (Auto) 0.1 TH/MM3 Basophils # (Auto) 0.0 TH/MM3 CBC Comment DIFF FINAL Differential Comment Prothrombin Time 37.1 SEC Prothromb Time International Ratio 3.7 RATIO Activated Partial Thromboplast Time 46.4 SEC Blood Urea Nitrogen 16 MG/DL Creatinine 1.20 MG/DL Random Glucose 130 MG/DL Total Protein 6.7 GM/DL Albumin 3.3 GM/DL Calcium Level 8.2 MG/DL Alkaline Phosphatase 119 U/L Aspartate Amino Transf (AST/SGOT) 19 U/L Alanine Aminotransferase (ALT/SGPT) 17 U/L Total Bilirubin 1.3 MG/DL Sodium Level 138 MEQ/L Potassium Level 3.3 MEQ/L Chloride Level 103 MEQ/L Carbon Dioxide Level 27.7 MEQ/L Anion Gap 7 MEQ/L Estimat Glomerular Filtration Rate 57 ML/MIN B-Type Natriuretic Peptide 520 PG/ML MDM Medical Decision Making Medical Screen Exam Complete: Yes Emergency Medical Condition: Yes Medical Record Reviewed: Yes Differential Diagnosis Differential includes DVT, CHF, contusion Narrative Course he is not aware of any injury to the right leg does appear quite swollen. Several months ago he had an ultrasound of the leg which was negative for DVT. Ultrasound was repeated and is again negative for DVT. His INR is elevated at 3.7. He says he takes 5 mg daily alternating with 2.5. I recommended he cut back to 2.5 daily. He is to hold one day. His potassium is low at 3.3. He'll be put on Lasix and supplemental potassium we have given supplemental potassium here. I had spoken to Dr. Jimenez and he thought the patient was taking Lasix and potassium but that does not appear to be the case. I will start him on Lasix 20 daily and potassium he is to follow-up with Dr. Zayas. I have requested home health evaluation for possible medication management as the patient does not appear reliable to take his medication Diagnosis Primary Impression: Pedal edema Scripts Potassium Chloride ER (K-Tab) 20 Meq Tab 20 MEQ PO DAILY for Electrolyte Replacement, #30 TAB 0 Refills Prov: Branden Jewell MD 02/05/17 Furosemide (Lasix) 20 Mg Tab 20 MG PO DAILY, #30 TAB 0 Refills Prov: Branden Jewell MD 02/05/17 Disposition: 01 DISCHARGE HOME Condition: Stable Branden Jewell MD Feb 05, 2017 15:04
[2017-02-05] MEDS ORDERED: COUM5TAB PO (15:09)
[2017-02-05] MEDS ORDERED: COUM2.5T PO (15:09)
--- NOTE | 2017-02-05 15:34 | RADRPT ---
EXAM DATE/TIME: 02/05/2017 15:14 [facility] COMPARISON: No previous studies available for comparison. INDICATIONS : Short of breath. MEDICAL HISTORY : Hypertension. SURGICAL HISTORY : Prostatectomy. ENCOUNTER: Initial ACUITY: 1 day PAIN SCORE: 0/10 LOCATION: Bilateral chest FINDINGS: The heart is markedly enlarged. Mild interstitial vascular prominence is noted. There is no evidence of pulmonary edema or acute air space disease. CONCLUSION: Cardiomegaly without evidence of acute process. Eliu Johnson MD on February 05, 2017 at 15:32 Board Certified Radiologist. This report was verified electronically.
[2017-02-05 15:42] LABS: AUTOMATED NEUTROPHIL # 5.2 TH/MM3 (1.8-7.7); BASOPHIL % 0.5 % (0.0-2.0); EOSINOPHIL # 0.1 TH/MM3 (0-0.4); EOSINOPHIL % 1.4 % (0.0-4.0); HEMATOCRIT 33.2 % (39.0-51.0); HEMO FLAGS DIFF FINAL; LYMPH % 16.4 % (9.0-44.0); LYMPHOCYTE # 1.2 TH/MM3 (1.0-4.8); MEAN CELL VOLUME 92.2 FL (80.0-100.0); MEAN CORPUSCULAR HEMOGLOBIN 29.2 PG (27.0-34.0); MEAN CORPUSCULAR HGB CONC 31.7 % (32.0-36.0); MONO % 14.5 % (0.0-8.0); NEUT % 67.2 % (16.0-70.0); PLATELET COUNT 229 TH/MM3 (150-450); RED CELL DISTRIBUTION WIDTH 13.4 % (11.6-17.2); WHITE BLOOD COUNT 7.6 TH/MM3 (4.0-11.0)
--- NOTE | 2017-02-05 15:47 | RADRPT ---
EXAM DATE/TIME: 02/05/2017 15:21 [facility] COMPARISON: No previous studies available for comparison. INDICATIONS : Right leg pain and swelling. MEDICAL HISTORY : Afib. Hypertension. SURGICAL HISTORY : Prostate surgery. ENCOUNTER: Subsequent ACUITY: 4 - 6 days PAIN SCORE: 0/10 LOCATION: Right leg. TECHNIQUE: Venous ultrasound of the leg was performed from the inguinal ligament to the proximal calf. Real-lillie e, color Doppler and spectral tracing, compression and augmentation techniques were used. FINDINGS: There is normal compressibility of the deep venous system from the inguinal region to the proximal ca lf. No echogenic clot is seen in the lumen of the common femoral, femoral, popliteal, and posterior tibial veins. There is a normal response of the venous system to proximal and distal augmentation an d respiration. CONCLUSION: 1. No evidence of deep venous thrombosis. Forest Alvarenga MD on February 05, 2017 at 15:45 Board Certified Radiologist. This report was verified electronically.
[2017-02-05 15:51] LABS: CHLORIDE 103 MEQ/L (98-107); POTASSIUM 3.3 MEQ/L (3.5-5.1); SODIUM (NA) 138 MEQ/L (136-145)
[2017-02-05 15:55] LABS: ANION GAP 7 MEQ/L (5-15); APTT (PATIENT) 46.4 SEC (24.3-30.1); BICARBONATE 27.7 MEQ/L (21.0-32.0); BLOOD UREA NITROGEN 16 MG/DL (7-18); INTERNATIONAL NORMALIZED RATIO 3.7 RATIO; PROTHROMBIN TIME - PATIENT 37.1 SEC (9.8-11.6)
[2017-02-05] MEDS ORDERED: AMLO10TA2 PO (15:55)
[2017-02-05] MEDS ORDERED: FURO1TAB62 PO ×2 (15:55→16:17)
[2017-02-05] MEDS ORDERED: DIGO0.12 PO (15:55)
[2017-02-05 15:58] LABS: ALT (GPT) 17 U/L (12-78); AST (GOT) 19 U/L (15-37); GLOMERULAR FILTRATION RATE 57 ML/MIN (>89)
[2017-02-05 15:59] LABS: TOTAL BILIRUBIN ADULT 1.3 MG/DL (0.2-1.0)
[2017-02-05] MEDS ORDERED: POTASSIUM CHLORIDE 10 MEQ CONTROLLED RELEASE TAB PO ONE (16:00)
[2017-02-05 16:01] LABS: ALKALINE PHOSPHATASE 119 U/L (45-117)
--- NOTE | 2017-02-05 16:21 | HHI.FF ---
Face to Face Verification Diagnosis: (1) Noncompliance with medication regimen (2) Pedal edema (3) Coagulopathy (4) Congestive heart failure Home Health Nursing Order: Medical education CHF education Medication education-adverse effect Nursing assessment with vital signs I have seen patient Gama Hewitt on 02/05/17. My clinical findings support the need for the requested home health care services because: Limited ability to care for self Need for psychosocial assistance Impaired cognition/judgement High risk of falls I certify that my clinical findings support that this patient is homebound because: Unsteady gait/balance Unsafe to leave home unassisted Branden Jewell MD Feb 05, 2017 16:20
[2017-02-05] MEDS ORDERED: POTA1TAB4 PO (16:22)
[2017-02-05 16:42] LABS: BLOOD, URINE NEG (NEG); GLUCOSE,URINE NEG (NEG); KETONE, URINE NEG (NEG); NITRITE,URINE NEG (NEG); PH, URINE 6.5 (5.0-8.5)
[2017-02-05 16:46] LABS: URINE COLOR YELLOW (YELLW/STRAW)
[2017-02-05 16:47] LABS: COMMENT (UR) CULT NOT INDICATED; CULTURE IF INDICATED CULT NOT INDICATED; MUCUS URINE FEW /lpf (OCC); RBC, URINE 0-3 /hpf (0-3); SQUAMOUS EPITHELIAL CELL URINE 0-5 /hpf (0-5); WBC, URINE 0-2 /hpf (0-5)
[2017-02-05 17:00] VITALS: BP 159/67
--- NOTE | 2017-02-06 17:02 | EKG ---
Date Performed: 02/05/2017 Time Performed: 15:18:36 PTAGE: 89 years EKG: ATRIAL FIBRILLATION WITH SLOW VENTRICULAR RESPONSE MARKED LEFT AXIS DEVIATION ABNORMAL ECG PREVIOUS TRACING : 12/06/1999 09.47 DOCTOR: Giorgi Rodriguez Interpretating Date/Time 02/06/2017 17:01:19
== END 2017-02-05 17:21 | disposition home or self-care (01) ==
LOC: PHED 14:35
DX: R60.0 Localized edema (principal); I48.91 Unspecified atrial fibrillation; I10 Essential (primary) hypertension; Z79.01 Long term (current) use of anticoagulants
CPT/HCPCS: 71010; 80053; 80162; 81001; 83880; 85025; 85610; 85730; 93005; 93971; 99285

== ENCOUNTER 2017-03-14 16:28 | Inpatient (IN) | payer MEDICARE, BC ==
[2017-03-14] VITALS (7 sets, daily range): BP systolic 134–151; BP diastolic 62–86; PULSE 61–75; RESP 16–19; TEMP 96.3–97.4; O2SAT 91–99
[~2017-03-14] VITALS: Ht 182.9 cm; Wt 79.1 kg
[~2017-03-14 16:28] MED LIST changes: +AMLO10TA2 PO; -BACT2OIN TOPICAL; -CEPH-460 PO; -COUM1TAB PO; +COUM2.5T PO; +COUM5TAB PO; +DIGO0.12 PO; +FURO1TAB62 PO; +POTA1TAB4 PO
[2017-03-14] MEDS ORDERED: DEPRESSION PO (17:11)
--- NOTE | 2017-03-14 17:14 | PD ---
HPI Chief Complaint: Fall Time Seen by Provider: 16:54 Travel History International Travel<30 days: No Contact w/Intl Traveler<30days: No Traveled to known affect area: No History of Present Illness HPI 89 y/o male presents after she got tripped up on a curb and now has severe left leg pain. He didn't hit his head. He did not lose consciousness. He's been having nonbloody emesis since the event. He takes Coumadin in terms of anticoagulation. He denies any other concurrent complaints. History is limited given pain and vomiting and family help supplement some. PFSH Past Medical History Hx Anticoagulant Therapy: Yes (Coumadin) Atrial Fibrillation: Yes Cardiovascular Problems: Yes (Afib) Diabetes: No Diminished Hearing: Yes (HOPI) Hypertension: Yes Immunizations Current: Yes Past Surgical History Genitourinary Surgery: Yes (prostate) Social History Alcohol Use: Yes (occas. beer) Tobacco Use: No (quit at age 23 smoked cigs for a few years) Substance Use: No Allergies-Medications (Allergen,Severity, Reaction): Coded Allergies: No Known Allergies (Verified Adverse Reaction, Unknown, 03/14/17) Reported Meds & Prescriptions Reported Meds & Active Scripts Active K-Tab (Potassium Chloride) 20 Meq Tab 20 Meq PO DAILY Lasix (Furosemide) 20 Mg Tab 20 Mg PO DAILY Reported Digoxin 0.125 Mg Tab 0.125 Mg PO DAILY Amlodipine (Amlodipine Besylate) 10 Mg Tab 10 Mg PO DAILY Lasix (Furosemide) 20 Mg Tab 20 Mg PO DAILY Coumadin (Warfarin) 2.5 Mg Tab 2.5 Mg PO SUTUWETHSA Coumadin (Warfarin) 5 Mg Tab 5 Mg PO MOFR Review of Systems Except as stated in HPI: all other systems reviewed are Neg Physical Exam Exam Limitations: Other: (pain and vomiting) Narrative General: 89 y/o patient in no apparent distress Skin: Warm and dry Eyes: Pupils equal, eomi ENT: no septal hematoma NECK: no pain with palpation and range of motion in midline Cardiovascular: Regular rate and rhythm Respiratory: Normal respiratory effort noted, clear to auscultation bilaterally Abdomen: soft, nontender, nondistended Back: No step-offs, midline spine nontender with palpation Extremities: Pain with palpation of left mid upper thigh, no lacerations over, neurovascularly intact, no pain with rom of other joints Neuro: awake, clear speech, sensation and motor grossly intact Data Data Last Documented VS Vital Signs Date Time Temp Pulse Resp B/P (MAP) Pulse Ox O2 Delivery O2 Flow Rate FiO2 03/14/17 17:14 99 03/14/17 16:48 97.4 63 19 139/62 (87) Orders Orders Basic Metabolic Panel (Bmp) (03/14/17 17:02) Complete Blood Count With Diff (03/14/17 17:02) Prothrombin Time / Inr (Pt) (03/14/17 17:02) Act Partial Throm Time (Ptt) (03/14/17 17:02) Ct Brain W/O Iv Contrast(Rout) (03/14/17 17:02) Iv Access Insert/Monitor (03/14/17 17:02) Ecg Monitoring (03/14/17 17:02) Oximetry (03/14/17 17:02) Ondansetron Inj (Zofran Inj) (03/14/17 17:15) Sodium Chloride 0.9% Flush (Ns Flush) (03/14/17 17:15) Femur (Ap & Lat/2vws) (03/14/17 ) Chest, Single Ap (03/14/17 ) Type And Screen (03/14/17 17:05) Morphine Inj (Morphine Inj) (03/14/17 18:00) Electrocardiogram (03/14/17 ) Urinary Catheter Insert/Apply (03/14/17 17:51) Consult Orthopedic (03/14/17 ) Npo After Midnight W/ Po Meds (03/14/17 Dinner) (Hub Use Only)Inp Phy Cons/Ref (03/14/17 ) Admit Order (Ed Use Only) (03/14/17 18:45) Labs Laboratory Tests Test 03/14/17 18:19 White Blood Count 7.4 TH/MM3 Red Blood Count 4.03 MIL/MM3 Hemoglobin 12.0 GM/DL Hematocrit 37.1 % Mean Corpuscular Volume 92.0 FL Mean Corpuscular Hemoglobin 29.9 PG Mean Corpuscular Hemoglobin Concent 32.5 % Red Cell Distribution Width 13.5 % Platelet Count 213 TH/MM3 Mean Platelet Volume 8.2 FL Neutrophils (%) (Auto) 77.1 % Lymphocytes (%) (Auto) 12.0 % Monocytes (%) (Auto) 8.2 % Eosinophils (%) (Auto) 1.9 % Basophils (%) (Auto) 0.8 % Neutrophils # (Auto) 5.7 TH/MM3 Lymphocytes # (Auto) 0.9 TH/MM3 Monocytes # (Auto) 0.6 TH/MM3 Eosinophils # (Auto) 0.1 TH/MM3 Basophils # (Auto) 0.1 TH/MM3 CBC Comment DIFF FINAL Differential Comment Prothrombin Time 22.5 SEC Prothromb Time International Ratio 2.2 RATIO Activated Partial Thromboplast Time 32.1 SEC Blood Urea Nitrogen 17 MG/DL Creatinine 1.30 MG/DL Random Glucose 187 MG/DL Calcium Level 8.6 MG/DL Sodium Level 141 MEQ/L Potassium Level 3.7 MEQ/L Chloride Level 105 MEQ/L Carbon Dioxide Level 28.5 MEQ/L Anion Gap 8 MEQ/L Estimat Glomerular Filtration Rate 52 ML/MIN MDM Medical Decision Making Medical Screen Exam Complete: Yes Emergency Medical Condition: Yes Medical Record Reviewed: Yes (past history confirmed) Interpretation(s) Last 24 hours Impressions Femur X-Ray 03/14/17 0000 Signed Impressions: Service Date/Time: Tuesday, March 14, 2017 17:20 - CONCLUSION: Intertrochanteric fracture. Tru Tom MD FACR Chest X-Ray 03/14/17 0000 Signed Impressions: Service Date/Time: Tuesday, March 14, 2017 17:20 - CONCLUSION: Compensated cardiomegaly otherwise negative . Tru Tom MD FACR ct brain no acute CBC & BMP Diagram 03/14/17 18:19 Calcium Level 8.6 Differential Diagnosis Fracture, strain, bleed Narrative Course Will check blood work, imaging and dose with Zofran and reevaluate patient and family updated, agree to admit Physician Communication Physician Communication dr baumann states to admit to the main with medicine and place consult, if inr less then 2 will maybe take to OR tommorrow dr mcdonough agrees to admit, knows inr pending Diagnosis Primary Impression: Hip fracture Qualified Codes: S72.002A - Fracture of unspecified part of neck of left femur , initial encounter for closed fracture Admitting Information Admitting Physician Requests: Admit Luanne Morales MD Mar 14, 2017 17:14
[2017-03-14] MEDS ORDERED: ONDANSETRON HCL 4 MG/2 ML VIAL IV PUSH ONE (17:15)
--- NOTE | 2017-03-14 17:58 | RADRPT ---
EXAM DATE/TIME: 03/14/2017 17:20 [facility] COMPARISON: No previous studies available for comparison. INDICATIONS : Proximal left femur pain post fall. MEDICAL HISTORY : Afib. Hypertension SURGICAL HISTORY : Prostate surgery ENCOUNTER: Initial ACUITY: 1 day PAIN SCORE: 10/10 LOCATION: Left pelvis FINDINGS: Intertrochanteric fracture left hip. Distal femur are intact. CONCLUSION: Intertrochanteric fracture. Tru Tom MD FACR on March 14, 2017 at 17:55 Board Certified Radiologist. This report was verified electronically.
--- NOTE | 2017-03-14 17:58 | RADRPT ---
EXAM DATE/TIME: 03/14/2017 17:20 [facility] COMPARISON: CHEST SINGLE AP, February 05, 2017, 15:14. INDICATIONS : Shortness pf breath. MEDICAL HISTORY : Afib. Hypertension SURGICAL HISTORY : Prostate surgery ENCOUNTER: Initial ACUITY: 1 day PAIN SCORE: 10/10 LOCATION: Bilateral chest FINDINGS: The lungs are clear. The heart is minimally enlarged. The pulmonary vascularity is normal. There is n o evidence for infiltrate or failure. The portion of the bony skeleton visualized is unremarkable. CONCLUSION: Compensated cardiomegaly otherwise negative . Tru Tom MD FACR on March 14, 2017 at 17:55 Board Certified Radiologist. This report was verified electronically.
[2017-03-14] MEDS ORDERED: MORPHINE SULFATE 2 MG/ML INJ IV PUSH ONE (18:00)
[2017-03-14 18:36] LABS: AUTOMATED NEUTROPHIL # 5.7 TH/MM3 (1.8-7.7); BASOPHIL # 0.1 TH/MM3 (0-0.2); BASOPHIL % 0.8 % (0.0-2.0); EOSINOPHIL # 0.1 TH/MM3 (0-0.4); EOSINOPHIL % 1.9 % (0.0-4.0); HEMATOCRIT 37.1 % (39.0-51.0); LYMPHOCYTE # 0.9 TH/MM3 (1.0-4.8); MEAN CORPUSCULAR HEMOGLOBIN 29.9 PG (27.0-34.0); MEAN CORPUSCULAR HGB CONC 32.5 % (32.0-36.0); MEAN PLATELET VOLUME 8.2 FL (7.0-11.0); MONO % 8.2 % (0.0-8.0); MONOCYTE # 0.6 TH/MM3 (0-0.9); NEUT % 77.1 % (16.0-70.0); PLATELET COUNT 213 TH/MM3 (150-450); RED BLOOD COUNT 4.03 MIL/MM3 (4.50-5.90); RED CELL DISTRIBUTION WIDTH 13.5 % (11.6-17.2); WHITE BLOOD COUNT 7.4 TH/MM3 (4.0-11.0)
[2017-03-14 18:41] LABS: BICARBONATE 28.5 MEQ/L (21.0-32.0); CALCIUM 8.6 MG/DL (8.5-10.1)
--- NOTE | 2017-03-14 18:41 | RADRPT ---
EXAM DATE/TIME: 03/14/2017 17:52 [facility] COMPARISON: No previous studies available for comparison. INDICATIONS : Trauma. Fall. Vomiting. RADIATION DOSE: 65.43 CTDIvol (mGy) ; Patient motion MEDICAL HISTORY : Cardiovascular disease. Hypertension. SURGICAL HISTORY : None. ENCOUNTER: Initial ACUITY: 1 day PAIN SCALE: 5/10 LOCATION: cranial TECHNIQUE: Multiple contiguous axial images were obtained of the head. Using automated exposure control and adj ustment of the mA and/or kV according to patient size, radiation dose was kept as low as reasonably a chievable to obtain optimal diagnostic quality images. DICOM format image data is available electro nically for review and comparison. FINDINGS: CEREBRUM: The ventricles are normal for age. No evidence of midline shift, mass lesion, hemorrhage or acute in farction. No extra-axial fluid collections are seen. Periventricular and subcortical white matter hy podensities indicate chronic small vessel white matter ischemic change. POSTERIOR FOSSA: The cerebellum and brainstem are intact. The 4th ventricle is midline. The cerebellopontine angle i s unremarkable. EXTRACRANIAL: The visualized portion of the orbits is intact. SKULL: The calvaria is intact. No evidence of skull fracture. CONCLUSION: No acute intracranial findings. Chronic ischemic findings. Lazaro Henson MD on March 14, 2017 at 18:37 Board Certified Radiologist. This report was verified electronically.
[2017-03-14 18:45] LABS: CREATININE 1.3 MG/DL (0.60-1.30)
[2017-03-14 19:05] LABS: INTERNATIONAL NORMALIZED RATIO 2.2 RATIO; PROTHROMBIN TIME - PATIENT 22.5 SEC (9.8-11.6)
[2017-03-14] MEDS: SODIUM CHLORIDE 0.9% FLUSH 10 ML FLUSH IVF PRN (19:19)
[2017-03-14] MEDS ORDERED: PHYTONADIONE INJ 1 MG/0.5 ML AMP SQ ONE (20:00)
[2017-03-14] MEDS ORDERED: ONDANSETRON HCL 4 MG/2 ML VIAL IV PUSH PRN (20:00)
[2017-03-14] MEDS ORDERED: MORPHINE SULFATE 2 MG/ML INJ IM PRN (20:00)
[2017-03-14] MEDS ORDERED: PHYTONADIONE 10 MG/ML VIAL SQ ONE (21:00)
[2017-03-14] MEDS ORDERED: MORPHINE SULFATE 2 MG/ML INJ IV PUSH PRN (23:00)
[2017-03-14] MEDS: SODIUM CHLOR 0.45% 1000 ML INJ 1,000 ML IV SCH (23:17)
[2017-03-14] MEDS: ACETAMINOPHEN/HYDROcodone 325 MG/5 MG TAB PO PRN (23:23)
--- NOTE | 2017-03-14 23:29 | HHI.HP ---
HPI Service [facility] Primary Care Physician Astrid Zayas MD Admission Diagnosis left hip fracture Diagnoses: (1) Hip fracture Chief Complaint: fall with resulting left hip pain Travel History International Travel<30 Days: No Contact w/Intl Traveler <30 Da: No Traveled to Known Affected Are: No History of Present Illness Mr. Hewitt is an 89 year-old male with a history of atrial fibrillation on Coumadin, hypertension, BPH, and arthritis who presented to the [facility] on 03/14/2017 after a slip and fall with subsequent left hip pain. X- ray in the ED showed left intertrochanteric fracture and the patient was transferred to the main campus for surgical correction in the morning. The patient reports severe left hip pain that is worse with movement and relieved by IV morphine. He reports that he slipped in some water while attempting to get into a car and did not hit his head or have a syncopal episode. He denies any recent fevers, chills, chest pain, shortness of breath, nausea, vomiting, or diarrhea. Review of Systems Except as stated in HPI: all other systems reviewed are Neg Past Family Social History Past Medical History Hypertension Atrial fibrillation on Coumadin Hearing impairment BPH status post prostate resection Chronic peripheral edema Benign skin cancer on face Denies diabetes mellitus, respiratory problems such as COPD or asthma, liver problems, kidney disease, DVT, PE, CVA, seizures, thyroid problems, or cancer other than skin cancer on face as mentioned above. . Past Surgical History Venous stripping of right leg 60 years ago Prostate resection . Reported Medications Reported Meds & Active Scripts Active K-Tab (Potassium Chloride) 20 Meq Tab 20 Meq PO DAILY Lasix (Furosemide) 20 Mg Tab 20 Mg PO DAILY Reported [Depression ] 1 Tab PO DAILY Digoxin 0.125 Mg Tab 0.125 Mg PO DAILY Amlodipine (Amlodipine Besylate) 10 Mg Tab 10 Mg PO DAILY Lasix (Furosemide) 20 Mg Tab 20 Mg PO DAILY Coumadin (Warfarin) 2.5 Mg Tab 2.5 Mg PO SUTUWETHSA Coumadin (Warfarin) 5 Mg Tab 5 Mg PO MOFR . Allergies: Coded Allergies: No Known Allergies (Verified Adverse Reaction, Unknown, 03/14/17) Active Ordered Medications Current Medications Ondansetron HCl (Zofran Inj) 4 mg ONCE ONCE IV PUSH Last administered on at 19:18; Start 03/14/17 at 17:15; Stop 03/14/17 at 17:16; Status DC Sodium Chloride (NS Flush) 2 ml UNSCH PRN IVF FLUSH AFTER USING IV ACCESS Last administered on 03/14/17at 19:19; Start 03/14/17 at 17:15 Morphine Sulfate (Morphine Inj) 3 mg ONCE ONCE IV PUSH Last administered on 02/17at 19:18; Start 03/14/17 at 18:00; Stop 03/14/17 at 18:01; Status DC Sodium Chloride 1,000 ml @ 75 mls/hr [id number] IV Last administered on at 23:17; Start 03/14/17 at 20:00 Digoxin (Lanoxin) 0.125 mg DAILY PO ; Start 03/15/17 at 09:00 Potassium Chloride (KCl) 20 meq DAILY PO ; Start 03/15/17 at 09:00 Phytonadione (Aquamephyton Inj) 2.5 mg ONCE ONCE SQ Last administered on at 20:55; Start 03/14/17 at 20:00; Stop 03/14/17 at 20:01; Status DC Ondansetron HCl (Zofran Inj) 4 mg Q6HR PRN IV PUSH NAUSEA OR VOMITING; Start at 20:00 Acetaminophen/ Hydrocodone Bitart ([place] 5-325 Mg) 1 tab Q4H PRN PO pain > 4 Last administered on 03/14/17at 23:23; Start 03/14/17 at 20:00 Morphine Sulfate (Morphine Inj) 2 mg Q3H PRN IM breakthrough pain; Start at 20:00; Stop 03/14/17 at 21:12; Status DC Phytonadione (Vitamin K Inj) 2.5 mg ONCE ONCE SQ Last administered on at 20:55; Start 03/14/17 at 21:00; Stop 03/14/17 at 21:01; Status DC Morphine Sulfate (Morphine Inj) 2 mg Q3H PRN IV PUSH breakthrough pain; Start 03/14/17 at 23:00 . Family History Denies any family history of anesthesia reactions or blood/bleeding disorders . Social History Tobacco: Smoked cigarettes from the age of [age]; has not smoked since Alcohol: Rare drink; will drink a beer . Physical Exam Vital Signs Vital Signs Date Time Temp Pulse Resp B/P (MAP) Pulse Ox O2 Delivery O2 Flow Rate FiO2 03/14/17 21:58 71 18 141/83 (102) 93 03/14/17 21:00 75 16 134/65 (88) 93 Room Air 03/14/17 20:00 72 16 143/86 (105) 93 Room Air 03/14/17 19:23 18 03/14/17 19:00 61 18 151/70 (97) 93 Room Air 03/14/17 19:00 61 18 93 Room Air 03/14/17 17:14 99 03/14/17 16:48 97.4 63 19 139/62 (87) 95 Physical Exam GENERAL: This is a very pleasant elderly male patient, in no apparent distress, complaining of left hip pain. SKIN: No rashes. Cool and dry. Multiple ecchymotic areas noted of various sizes and stages of healing on bilateral upper extremities. HEAD: Atraumatic. Normocephalic. EYES: No scleral icterus. No injection or drainage. ENT: Nose without bleeding, purulent drainage. NECK: Trachea midline. No JVD. CARDIOVASCULAR: Irregularly irregular without murmurs, gallops, or rubs. RESPIRATORY: Clear to auscultation. Breath sounds equal bilaterally. No wheezes , rales, or rhonchi. GASTROINTESTINAL: Abdomen soft, non-tender, nondistended. No guarding. MUSCULOSKELETAL: Extremities without clubbing, cyanosis. No calf tenderness. Left leg shorter than right and externally rotated. Pain with movement of the left hip. NEUROLOGICAL: Awake and alert. Motor and sensory grossly within normal limits. The patient has a very thick Germanic accent. . Laboratory Laboratory Tests Test 03/14/17 18:19 White Blood Count 7.4 Red Blood Count 4.03 Hemoglobin 12.0 Hematocrit 37.1 Mean Corpuscular Volume 92.0 Mean Corpuscular Hemoglobin 29.9 Mean Corpuscular Hemoglobin Concent 32.5 Red Cell Distribution Width 13.5 Platelet Count 213 Mean Platelet Volume 8.2 Neutrophils (%) (Auto) 77.1 Lymphocytes (%) (Auto) 12.0 Monocytes (%) (Auto) 8.2 Eosinophils (%) (Auto) 1.9 Basophils (%) (Auto) 0.8 Neutrophils # (Auto) 5.7 Lymphocytes # (Auto) 0.9 Monocytes # (Auto) 0.6 Eosinophils # (Auto) 0.1 Basophils # (Auto) 0.1 CBC Comment DIFF FINAL Differential Comment Prothrombin Time 22.5 Prothromb Time International Ratio 2.2 Activated Partial Thromboplast Time 32.1 Blood Urea Nitrogen 17 Creatinine 1.30 Random Glucose 187 Calcium Level 8.6 Sodium Level 141 Potassium Level 3.7 Chloride Level 105 Carbon Dioxide Level 28.5 Anion Gap 8 Estimat Glomerular Filtration Rate 52 Result Diagram: 03/14/17 1819 03/14/171818 Imaging Last Impressions Head CT 03/14/17 1702 Signed Impressions: Service Date/Time: Tuesday, March 14, 2017 17:52 - CONCLUSION: No acute intracranial findings. Chronic ischemic findings. Lazaro Henson MD Femur X-Ray 03/14/17 0000 Signed Impressions: Service Date/Time: Tuesday, March 14, 2017 17:20 - CONCLUSION: Intertrochanteric fracture. Tru Tom MD FACR Chest X-Ray 03/14/17 0000 Signed Impressions: Service Date/Time: Tuesday, March 14, 2017 17:20 - CONCLUSION: Compensated cardiomegaly otherwise negative . Tru Tom MD FACR . Caprini VTE Risk Assessment Caprini VTE Risk Assessment: Mod/High Risk (score >= 2) Caprini Risk Assessment Model Point Value = 1 Point Value = 2 Point Value = 3 Point Value = 5 Age 41-60 Minor surgery BMI > 25 kg/m2 Swollen legs Varicose veins or History of unexplained or recurrent spontaneous Oral contraceptives or hormone replacement Sepsis (< 1 month) Serious lung disease, including pneumonia (< 1 month) Abnormal pulmonary function Acute myocardial infarction Congestive heart failure (< 1 month) History of inflammatory bowel disease Medical patient at bed rest Age 61-74 Arthroscopic surgery Major open surgery (> 45 min) Laparoscopic surgery (> 45 min) Malignancy Confined to bed (> 72 hours) Immobilizing plaster cast Central venous access Age >= 75 History of VTE Family history of VTE Factor V Leiden Prothrombin [id number] Lupus anticoagulant Anticardiolipin antibodies Elevated serum homocysteine Heparin-induced thrombocytopenia Other congenital or acquired thrombophilia Stroke (< 1 month) Elective arthroplasty Hip, pelvis, or leg fracture Acute spinal cord injury (< 1 month) Prophylaxis Regimen Total Risk Factor Score Risk Level Prophylaxis Regimen 0-1 Low Early ambulation 2 Moderate Order ONE of the following: *Sequential Compression Device (SCD) *Heparin 5000 units SQ BID 3-4 Higher Order ONE of the following medications: *Heparin 5000 units SQ TID *Enoxaparin/Lovenox 40 mg SQ daily (WT < 150 kg, CrCl > 30 mL/min) *Enoxaparin/Lovenox 30 mg SQ daily (WT < 150 kg, CrCl > 10-29 mL/min) *Enoxaparin/Lovenox 30 mg SQ BID (WT < 150 kg, CrCl > 30 mL/min) AND/OR *Sequential Compression Device (SCD) 5 or more Highest Order ONE of the following medications: *Heparin 5000 units SQ TID (Preferred with Epidurals) *Enoxaparin/Lovenox 40 mg SQ daily (WT < 150 kg, CrCl > 30 mL/min) *Enoxaparin/Lovenox 30 mg SQ daily (WT < 150 kg, CrCl > 10-29 mL/min) *Enoxaparin/Lovenox 30 mg SQ BID (WT < 150 kg, CrCl > 30 mL/min) AND *Sequential Compression Device (SCD) Assessment and Plan Problem List: (1) Hip fracture ICD Code: S72.009A - Fracture of unspecified part of neck of unspecified femur , initial encounter for closed fracture Status: Acute (2) Atrial fibrillation ICD Code: I48.91 - Unspecified atrial fibrillation Status: Chronic (3) Hypertension ICD Code: I10 - Essential (primary) hypertension Status: Chronic (4) Depression ICD Code: F32.9 - Major depressive disorder, single episode, unspecified Status: Chronic Assessment and Plan Mr. Hewitt is an 89 year-old male with a history of atrial fibrillation on Coumadin, hypertension, BPH, and arthritis who presented to the [facility] on 03/14/2017 after a slip and fall with subsequent left hip pain. X- ray in the ED showed left intertrochanteric fracture and the patient was transferred to the main campus for surgical correction in the morning. Left intertrochanteric fracture - Orthopedic surgeon consulted - appreciate assistance - Nothing by mouth after midnight - Anderson 5/325 by mouth when necessary for pain and morphine 2 mg IV as needed for breakthrough pain - Bedrest Atrial fibrillation on Coumadin - rate controlled - Continuous cardiac telemetry to monitor dysrhythmia and rate - Home Digoxin continued - INR 2.2 on admission - Vitamin K given with hopes to reduce INR < 2.0 for surgery - will recheck INR in a.m. - follow results Hypertension - BPs slightly elevated - resume home amlodipine - monitor trends in bp readings and adjust treatments as indicated Depression - Patient reports depression since his 2-1/2 years ago, they were for 65 years - His primary care physician placed him on an antidepressant though the name and dosage are not available on the medication reconciliation and the patient doesn't remember them - We'll need to obtain name and dosage of antidepressant restart as soon as we can - nursing order written DVT prophylaxis - SCDs/TEDs Discussed Condition With patient, RN, and Dr. Sandoval Physician Certification 2 Midnight Certification Type: Admission for Inpatient Services Order for Inpatient Services The services are ordered in accordance with Medicare regulations or non- Medicare payer requirements, as applicable. In the case of services not specified as inpatient-only, they are appropriately provided as inpatient services in accordance with the 2-midnight benchmark. Estimated LOS (days): 4 days is the estimated time the patient will need to remain in the hospital, assuming treatment plan goals are met and no additional complications. Post-Hospital Plan: SNF Problem Qualifiers (1) Hip fracture: Qualified Codes: S72.002A - Fracture of unspecified part of neck of left femur , initial encounter for closed fracture Britany Bustillo Mar 14, 2017 23:28
[2017-03-15] VITALS (12 sets, daily range): BP systolic 118–175; BP diastolic 58–75; PULSE 52–82; RESP 17–18; TEMP 95.9–98.3; O2SAT 90–95
[2017-03-15] MEDS ORDERED: POVIDONE IODINE 5% (ANTISEPSIS KIT) 4 APPLICATIONS EACH NARE PRN (00:45)
[2017-03-15] MEDS ORDERED: CHLORHEXIDINE GLUCONATE 2 % 1 PACK (2 CLOTHS) TOPICAL PRN (00:45)
[2017-03-15] MEDS ORDERED: LACTATED RINGER'S 1000 ML IV PRN (00:45)
[2017-03-15] MEDS: ACETAMINOPHEN/HYDROcodone 325 MG/5 MG TAB PO PRN ×2 (05:15→08:48)
[2017-03-15 06:11] LABS: INTERNATIONAL NORMALIZED RATIO 2.3 RATIO; PROTHROMBIN TIME - PATIENT 23.5 SEC (9.8-11.6)
[2017-03-15] MEDS: DIGOXIN 0.125 MG TAB PO SCH (08:49)
[2017-03-15] MEDS: POTASSIUM CHLORIDE 20 MEQ CONTROLLED RELEASE TAB PO SCH (08:51)
[2017-03-15] MEDS: SODIUM CHLOR 0.45% 1000 ML INJ 1,000 ML IV SCH ×2 (08:51→21:15)
[2017-03-15] MEDS: FUROSEMIDE 20 MG TAB PO SCH (08:51)
[2017-03-15] MEDS ORDERED: PHYTONADIONE 5 MG TAB PO ONE (09:00)
[2017-03-15] MEDS ORDERED: PHYTONADIONE 5 MG/SWFI 5 ML ORAL SYR PO ONE (09:30)
[2017-03-15] MEDS ORDERED: ceFAZolin 2 GM PREMIX 50 ML ONE (11:58)
[2017-03-15] MEDS ORDERED: GENTAMICIN SULFATE 80 MG/2 ML VIAL ONE (12:00)
[2017-03-15] MEDS ORDERED: LIDOCAINE HCL 1% PF 5 ML SYRINGE OTHER ONE (12:00)
[2017-03-15] MEDS ORDERED: ONDANSETRON HCL 4 MG/2 ML VIAL IV ONE (12:00)
[2017-03-15] MEDS ORDERED: GLYCOPYRROLATE 1 MG/5 ML SYRINGE IV PUSH ONE (12:00)
[2017-03-15] MEDS ORDERED: PROPOFOL 200 MG/20 ML AMP IV ONE (12:00)
[2017-03-15] MEDS ORDERED: ESCI10TA PO ×2 (12:52)
--- NOTE | 2017-03-15 13:19 | RADRPT ---
EXAM DATE/TIME: 03/15/2017 12:55 [facility] COMPARISON: No previous studies available for comparison. INDICATIONS : Open reduction internal fixation of left hip fracture MEDICAL HISTORY : None. SURGICAL HISTORY : None. ENCOUNTER: Initial ACUITY: 1 day PAIN SCORE: Non-responsive. LOCATION: Left hip FINDINGS: Multiple coned down views of the left hip were obtained and demonstrate placement of an intramedullar y nadeen and locking cannulated screw transfixing an intertrochanteric fracture. The fracture fragments are in near-anatomic alignment. CONCLUSION: Expected postoperative changes status post open rigid internal fixation Kaushik Rojas MD on March 15, 2017 at 13:16 Board Certified Radiologist. This report was verified electronically.
--- NOTE | 2017-03-15 13:29 | PD.CONS ---
HPI Service Orthopedic Surgeons Consult Requested By Primary Care Physician Astrid Zayas MD Admission Diagnosis left hip fracture Diagnoses: (1) Hip fracture (2) Atrial fibrillation (3) Hypertension (4) Depression (5) Intertrochanteric fracture of left femur Chief Complaint: Left hip pain History of Present Illness 89 yo male suffered trip and fall and injured his left hip. He denies other injuries. Past Family Social History Past Medical History Hypertension Atrial fibrillation on Coumadin Hearing impairment BPH status post prostate resection Chronic peripheral edema Benign skin cancer on face Denies diabetes mellitus, respiratory problems such as COPD or asthma, liver problems, kidney disease, DVT, PE, CVA, seizures, thyroid problems, or cancer other than skin cancer on face as mentioned above. . Past Surgical History Venous stripping of right leg 60 years ago Prostate resection . Allergies: Coded Allergies: No Known Allergies (Verified Adverse Reaction, Unknown, 03/14/17) Active Ordered Medications Current Medications Medications (Trade) Dose Ordered Sig/Jane Route Start Time Stop Time Status Last Admin (NS Flush) 2 ml UNSCH PRN IVF 03/14/17 17:15 03/14/17 19:19 Sodium Chloride 1,000 ml @ 75 mls/hr [id number] IV 03/14/17 20:00 03/14/17 23:17 (Lanoxin) 0.125 mg DAILY PO 03/15/17 09:00 03/15/17 08:49 (KCl) 20 meq DAILY PO 03/15/17 09:00 (Zofran Inj) 4 mg Q6HR PRN IV PUSH 03/14/17 20:00 ([place] 5-325 Mg) 1 tab Q4H PRN PO 03/14/17 20:00 03/15/17 08:48 (Morphine Inj) 2 mg Q3H PRN IV PUSH 03/14/17 23:00 Lactated Ringer's 1,000 ml @ 30 mls/hr Q24H PRN IV 03/15/17 00:45 03/18/17 00:44 03/15/17 10:56 (Betadine 5% Antisepsis Kit) 1 applic ADMINISTRATIVE LIBRARY ASSISTANT PRN EACH NARE 03/15/17 00:45 03/18/17 00:44 (Chlorhexidine 2% Cloth) 3 pack ADMINISTRATIVE LIBRARY ASSISTANT PRN TOPICAL 03/15/17 00:45 03/18/17 00:44 (Norvasc) 10 mg DAILY PO 03/15/17 09:00 (Lasix) 20 mg DAILY PO 03/15/17 09:00 Reported Meds & Active Scripts Active K-Tab (Potassium Chloride) 20 Meq Tab 20 Meq PO DAILY Lasix (Furosemide) 20 Mg Tab 20 Mg PO DAILY Reported Escitalopram (Escitalopram Oxalate) 10 Mg Tab 10 Mg PO DAILY Escitalopram (Escitalopram Oxalate) 10 Mg Tab 10 Mg PO DAILY Digoxin 0.125 Mg Tab 0.125 Mg PO DAILY Amlodipine (Amlodipine Besylate) 10 Mg Tab 10 Mg PO DAILY Lasix (Furosemide) 20 Mg Tab 20 Mg PO DAILY Coumadin (Warfarin) 2.5 Mg Tab 2.5 Mg PO SUTUWETHSA Coumadin (Warfarin) 5 Mg Tab 5 Mg PO MOFR Family History Denies any family history of anesthesia reactions or blood/bleeding disorders . Social History Tobacco: Smoked cigarettes from the age of [age]; has not smoked since Alcohol: Rare drink; will drink a beer . Physical Exam Vital Signs Vital Signs Date Time Temp Pulse Resp B/P (MAP) Pulse Ox O2 Delivery O2 Flow Rate FiO2 03/15/17 10:36 98.3 54 18 118/58 92 03/15/17 10:36 98.3 54 18 118/58 (78) 92 03/15/17 10:21 98.3 64 18 130/60 (83) 90 03/15/17 10:11 98.3 64 18 130/60 90 03/15/17 08:00 97.9 68 17 126/58 (80) 92 03/15/17 04:02 74 03/15/17 04:00 97.0 62 18 138/64 (88) 94 03/15/17 01:38 66 03/14/17 22:55 96.3 73 16 148/62 (90) 91 03/14/17 21:58 71 18 141/83 (102) 93 03/14/17 21:00 75 16 134/65 (88) 93 Room Air 03/14/17 20:00 72 16 143/86 (105) 93 Room Air 1/12/18 19:23 18 03/14/17 19:00 61 18 151/70 (97) 93 Room Air 03/14/17 19:00 61 18 93 Room Air 03/14/17 17:14 99 03/14/17 16:48 97.4 63 19 139/62 (87) 95 Laboratory Laboratory Tests Test 03/14/17 18:19 03/15/17 05:00 White Blood Count 7.4 Red Blood Count 4.03 Hemoglobin 12.0 Hematocrit 37.1 Mean Corpuscular Volume 92.0 Mean Corpuscular Hemoglobin 29.9 Mean Corpuscular Hemoglobin Concent 32.5 Red Cell Distribution Width 13.5 Platelet Count 213 Mean Platelet Volume 8.2 Neutrophils (%) (Auto) 77.1 Lymphocytes (%) (Auto) 12.0 Monocytes (%) (Auto) 8.2 Eosinophils (%) (Auto) 1.9 Basophils (%) (Auto) 0.8 Neutrophils # (Auto) 5.7 Lymphocytes # (Auto) 0.9 Monocytes # (Auto) 0.6 Eosinophils # (Auto) 0.1 Basophils # (Auto) 0.1 CBC Comment DIFF FINAL Differential Comment Prothrombin Time 22.5 23.5 Prothromb Time International Ratio 2.2 2.3 Activated Partial Thromboplast Time 32.1 Blood Urea Nitrogen 17 Creatinine 1.30 Random Glucose 187 Calcium Level 8.6 Sodium Level 141 Potassium Level 3.7 Chloride Level 105 Carbon Dioxide Level 28.5 Anion Gap 8 Estimat Glomerular Filtration Rate 52 Result Diagram: 03/14/17 1819 03/14/171818 Assessment & Plan Problem List: (1) Intertrochanteric fracture of left femur ICD Codes: S72.142A - Displaced intertrochanteric fracture of left femur, initial encounter for closed fracture Assessment and Plan Xrays were reviewed and discussed with patient Options of treatment were discussed Recommend ORIF Informed consent was obtained Addison Oro MD Mar 15, 2017 13:29
[2017-03-15] MEDS ORDERED: *morphine SULFATE 10 MG/ML PERIprocedure ONLY ONE (13:31)
--- NOTE | 2017-03-15 13:31 | PD.OP ---
Operative Report Preoperative Diagnosis: (1) Intertrochanteric fracture of left femur Postoperative Diagnosis: (1) Intertrochanteric fracture of left femur Procedure: Left Hip Open Reduction and Internal Fixation with Synthes New Trochanteric Nail Anesthesia: General Surgeon: Addison Oro MD Editor Newspaper(s): Juan Luis SU Operation and Findings: see dictation Addison Oro MD Mar 15, 2017 13:31
[2017-03-15] MEDS ORDERED: MORPHINE SULFATE 30 MG/30 ML PCA IV SCH (14:00)
[2017-03-15] MEDS ORDERED: DO NOT ADM ANY ANTICOAGULANT DRUGS PRN (14:00)
[2017-03-15] MEDS ORDERED: oxyCODONE/ACETAMINOPHEN 5 MG/325 MG TAB PO PRN (14:00)
[2017-03-15] MEDS ORDERED: SENNOSIDES 8.6 MG TAB PO PRN (14:00)
[2017-03-15] MEDS ORDERED: Post-op Orders (for Pharmacy) XX ONE (14:00)
[2017-03-15] MEDS ORDERED: ACETAMINOPHEN 325 MG TAB PO PRN (14:00)
[2017-03-15] MEDS ORDERED: MAGNESIUM HYDROXIDE SUSP 30 ML CUP PO PRN (14:00)
[2017-03-15] MEDS ORDERED: BISACODYL 10 MG SUPP RECTAL PRN (14:00)
[2017-03-15] MEDS: PCA - TOTAL MG MORPHINE DELIVERED PER SHIFT SCH ×2 (14:00→21:15)
[2017-03-15] MEDS ORDERED: NALOXONE HCL 0.4 MG/ML AMP IV PUSH PRN (14:00)
[2017-03-15] MEDS ORDERED: ENALAPRILAT 1.25 MG/ML VIAL IV PUSH PRN (15:00)
[2017-03-15] MEDS: cloNIDine HCL 0.1 MG TAB PO PRN (15:06)
[2017-03-15] MEDS: WARFARIN SOD 2.5 MG TAB PO SCH (15:09)
--- NOTE | 2017-03-15 15:55 | EKG ---
Date Performed: 03/14/2017 Time Performed: 18:19:51 PTAGE: 89 years EKG: ATRIAL FIBRILLATION WITH with controlled ventricular response and PVCs MARKED LEFT AXIS DEV IATION Since previous tracing, no significant change noted ABNORMAL ECG PREVIOUS TRACING : 02/05/2017 15.18 DOCTOR: Vikram Triplett Interpretating Date/Time 03/15/2017 15:54:59
--- NOTE | 2017-03-15 18:27 | HHI.PR ---
Subjective Remarks Mr. Hewitt is an 89 status post left hip fracture repair. Some nausea is present postop. Pain is controlled. No complaints other than this when seen. Objective Vital Signs Date Time Temp Pulse Resp B/P (MAP) Pulse Ox O2 Delivery O2 Flow Rate FiO2 03/15/17 17:36 152/72 (98) 03/15/17 16:00 95.9 77 17 175/75 (108) 95 03/15/17 15:05 14 03/15/17 14:15 97.6 75 14 163/88 (113) 93 Nasal Cannula 4 Manual Cuff/Auscultation 03/15/17 14:00 81 14 169/82 (111) 93 Nasal Cannula 4 Manual Cuff/Auscultation 03/15/17 13:45 86 14 163/74 (103) 91 Nasal Cannula 4 Manual Cuff/Auscultation 03/15/17 13:30 84 14 121/80 (94) 91 Nasal Cannula 4 Manual Cuff/Auscultation 03/15/17 13:25 97.6 106 14 126/79 (95) 91 Nasal Cannula 4 Manual Cuff/Auscultation 03/15/17 10:36 98.3 54 18 118/58 92 03/15/17 10:36 98.3 54 18 118/58 (78) 92 03/15/17 10:21 98.3 64 18 130/60 (83) 90 03/15/17 10:11 98.3 64 18 130/60 90 03/15/17 08:00 97.9 68 17 126/58 (80) 92 03/15/17 04:02 74 03/15/17 04:00 97.0 62 18 138/64 (88) 94 03/15/17 01:38 66 03/14/17 22:55 96.3 73 16 148/62 (90) 91 03/14/17 21:58 71 18 141/83 (102) 93 03/14/17 21:00 75 16 134/65 (88) 93 Room Air 03/14/17 20:00 72 16 143/86 (105) 93 Room Air 03/14/17 19:23 18 03/14/17 19:00 61 18 151/70 (97) 93 Room Air 03/14/17 19:00 61 18 93 Room Air I/O 1/12/18 103/14/17 03/15/17 03/15/17 03/15/17 07:00 15:00 23:00 07:00 15:00 23:00 Intake Total 450 ml 1202 ml Output Total 400 ml 350 ml Balance 50 ml 852 ml Intake Oral 0 ml IV Total 450 ml 900 ml FFP 302 ml Blood Product IV Normal Saline Flush 0 ml Output Urine Total 400 ml 300 ml Estimated Blood Loss 50 ml # Voids 1 Result Diagram: 03/14/17181803/14/171818 Objective Remarks GENERAL: NAD, A&Ox3 HEAD: Normocephalic. NECK: Supple, trachea midline. No lymphadenopathy. EYES: No scleral icterus. No injection or drainage. CARDIOVASCULAR: Regular rate and rhythm without murmurs, gallops, or rubs. RESPIRATORY: Breath sounds equal bilaterally. No accessory muscle use. GASTROINTESTINAL: Abdomen soft, non-tender, nondistended. MUSCULOSKELETAL: No cyanosis, or edema. Left hip wound and tenderness. SKIN: Warm and dry. NEURO: No focal neurological deficitis. A/P Problem List: (1) Intertrochanteric fracture of left femur ICD Code: S72.142A - Displaced intertrochanteric fracture of left femur, initial encounter for closed fracture (2) Hypertension ICD Code: I10 - Essential (primary) hypertension Status: Chronic (3) Depression ICD Code: F32.9 - Major depressive disorder, single episode, unspecified Status: Chronic (4) Atrial fibrillation ICD Code: I48.91 - Unspecified atrial fibrillation Status: Chronic (5) Hip fracture ICD Code: S72.009A - Fracture of unspecified part of neck of unspecified femur , initial encounter for closed fracture Status: Acute Assessment and Plan 89-year-old male admitted secondary to left hip fracture Left intertrochanteric fracture Orthopedics following. Patient is status post surgical repair. Plan for PT tomorrow. Continue pain treatments as needed. Atrial fibrillation on Coumadin rate controlled Coumadin was held for surgery but has been resumed today Monitor INR Continue digoxin Hypertension Continue baseline treatment Follow blood pressures Depression Continue SSRI DVT prophylaxis SCDs Coumadin Problem Qualifiers (1) Hip fracture: Qualified Codes: S72.002A - Fracture of unspecified part of neck of left femur , initial encounter for closed fracture Cong Ramey MD Mar 15, 2017 18:27
[2017-03-15] MEDS: SODIUM CHLORIDE 0.9% FLUSH 10 ML FLUSH IVF PRN (21:16)
[2017-03-15] MEDS: DOCUSATE SODIUM 50 MG/SENNA 8.6 MG TAB PO SCH (21:16)
[2017-03-16] VITALS (16 sets, daily range): BP systolic 124–160; BP diastolic 57–87; PULSE 52–86; RESP 18–33; TEMP 95.3–99.1; O2SAT 89–100
[2017-03-16] MEDS: PCA - TOTAL MG MORPHINE DELIVERED PER SHIFT SCH ×2 (05:32→14:00)
[2017-03-16 07:53] LABS: AUTOMATED NEUTROPHIL # 8.4 TH/MM3 (1.8-7.7); BASOPHIL # 0.1 TH/MM3 (0-0.2); BASOPHIL % 0.5 % (0.0-2.0); EOSINOPHIL % 0.1 % (0.0-4.0); HEMATOCRIT 29.7 % (39.0-51.0); MEAN CELL VOLUME 93.4 FL (80.0-100.0); MEAN CORPUSCULAR HEMOGLOBIN 31.5 PG (27.0-34.0); MEAN CORPUSCULAR HGB CONC 33.7 % (32.0-36.0); MEAN PLATELET VOLUME 9.1 FL (7.0-11.0); MONO % 14.5 % (0.0-8.0); MONOCYTE # 1.6 TH/MM3 (0-0.9); NEUT % 75.9 % (16.0-70.0); PLATELET COUNT 180 TH/MM3 (150-450); RED BLOOD COUNT 3.18 MIL/MM3 (4.50-5.90); RED CELL DISTRIBUTION WIDTH 14.3 % (11.6-17.2)
[2017-03-16 07:55] LABS: INTERNATIONAL NORMALIZED RATIO 1.4 RATIO; PROTHROMBIN TIME - PATIENT 14.2 SEC (9.8-11.6)
[2017-03-16 08:16] LABS: ALBUMIN 3.4 GM/DL (3.4-5.0); AST (GOT) 32 U/L (15-37); BLOOD UREA NITROGEN 18 MG/DL (7-18); CALCIUM 8.2 MG/DL (8.5-10.1); CHLORIDE 102 MEQ/L (98-107); CREATININE 1.15 MG/DL (0.60-1.30); GLOMERULAR FILTRATION RATE 60 ML/MIN (>89); GLUCOSE,RANDOM 117 MG/DL (74-106); SODIUM (NA) 138 MEQ/L (136-145)
[2017-03-16 08:20] LABS: ALKALINE PHOSPHATASE 101 U/L (45-117); ALT (GPT) 17 U/L (12-78); TOTAL BILIRUBIN ADULT 1.2 MG/DL (0.2-1.0); TOTAL PROTEIN 6.8 GM/DL (6.4-8.2)
--- NOTE | 2017-03-16 08:48 | RADRPT ---
EXAM DATE/TIME: 03/16/2017 07:57 [facility] COMPARISON: CHEST SINGLE AP, March 14, 2017, 17:20. INDICATIONS : Dyspnea MEDICAL HISTORY : None. SURGICAL HISTORY : None. ENCOUNTER: Subsequent ACUITY: 2 days PAIN SCORE: 0/10 LOCATION: Bilateral chest FINDINGS: Single AP view of the chest. Moderate cardiac silhouette enlargement unchanged. There is mild central pulmonary vasculature prominence. Confluent opacity is seen at the left lung base with obscuration o f the left hemidiaphragm. Small left pleural effusion. CONCLUSION: Pulmonary vascular congestion. Superimposed left lower lobe consolidation versus atelectasis and smal l pleural effusion also noted. Lazaro Henson MD on March 16, 2017 at 8:42 Board Certified Radiologist. This report was verified electronically.
[2017-03-16] MEDS: DOCUSATE SODIUM 50 MG/SENNA 8.6 MG TAB PO SCH ×2 (08:52→20:17)
[2017-03-16] MEDS: FUROSEMIDE 20 MG TAB PO SCH (08:52)
[2017-03-16] MEDS: POTASSIUM CHLORIDE 20 MEQ CONTROLLED RELEASE TAB PO SCH (08:52)
[2017-03-16] MEDS: MULTIVITAMINS/MINERALS THERAPEUTIC TAB PO SCH (08:52)
[2017-03-16] MEDS: ESCITALOPRAM OXALATE 10 MG TAB PO SCH (08:52)
[2017-03-16] MEDS: DIGOXIN 0.125 MG TAB PO SCH (08:52)
--- NOTE | 2017-03-16 10:19 | PD.ORT.PN ---
Subjective Subjective Remarks Patient comfortable Requiring O2 facemask Objective Vitals Vital Signs Date Time Temp Pulse Resp B/P (MAP) Pulse Ox O2 Delivery O2 Flow Rate FiO2 03/16/17 10:07 95 Non-Rebreather 100 03/16/17 07:26 94 03/16/17 07:21 100 03/16/17 05:32 18 03/16/17 04:00 69 03/16/17 03:20 97.2 80 20 140/70 (93) 93 03/16/17 00:00 98.1 82 18 160/87 (111) 95 03/15/17 23:50 52 03/15/17 21:15 17 03/15/17 20:35 57 03/15/17 20:20 97.1 82 18 141/72 (95) 91 03/15/17 17:36 152/72 (98) 03/15/17 16:00 95.9 77 17 175/75 (108) 95 03/15/17 15:05 14 03/15/17 14:15 97.6 75 14 163/88 (113) 93 Nasal Cannula 4 Manual Cuff/Auscultation 03/15/17 14:00 81 14 169/82 (111) 93 Nasal Cannula 4 Manual Cuff/Auscultation 03/15/17 13:45 86 14 163/74 (103) 91 Nasal Cannula 4 Manual Cuff/Auscultation 03/15/17 13:30 84 14 121/80 (94) 91 Nasal Cannula 4 Manual Cuff/Auscultation 03/15/17 13:25 97.6 106 14 126/79 (95) 91 Nasal Cannula 4 Manual Cuff/Auscultation 03/15/17 10:36 98.3 54 18 118/58 92 03/15/17 10:36 98.3 54 18 118/58 (78) 92 03/15/17 10:21 98.3 64 18 130/60 (83) 90 I/O 03/15/17 03/15/17 03/15/17 03/16/17 03/16/17 03/16/17 07:00 15:00 23:00 07:00 15:00 23:00 Intake Total 450 ml 1202 ml 1220 ml 580 ml Output Total 400 ml 350 ml 200 ml 925 ml Balance 50 ml 852 ml 1020 ml -345 ml Intake Oral 0 ml 120 ml 480 ml IV Total 450 ml 900 ml 1100 ml 100 ml FFP 302 ml Blood Product IV Normal Saline Flush 0 ml Output Urine Total 400 ml 300 ml 200 ml 925 ml Estimated Blood Loss 50 ml Bladder Scan Volume Amount 999 ml # Voids 1 # Bowel Movements 0 0 Result Diagram: 03/16/17 0639 03/16/17 0639 Other Results Laboratory Tests Test 03/16/17 06:39 Prothromb Time International Ratio 1.4 RATIO Prothrombin Time 14.2 SEC (9.8-11.6) Imaging Last 24 hours Impressions Chest X-Ray 03/16/17 0000 Signed Impressions: Service Date/Time: Thursday, March 16, 2017 07:57 - CONCLUSION: Pulmonary vascular congestion. Superimposed left lower lobe consolidation versus atelectasis and small pleural effusion also noted. Lazaro Henson MD Objective Remarks Left hip dressing in place NVI Assessment & Plan Ortho Post Op Day #: 1 (Left hip troch nail) Problem List: (1) Intertrochanteric fracture of left femur ICD Codes: S72.142A - Displaced intertrochanteric fracture of left femur, initial encounter for closed fracture Assessment and Plan Daily physical therapy WBAT Resume Coumadin for A-fib and DVT prophylaxis Monitor Addison Oro MD Mar 16, 2017 10:19
[2017-03-16] MEDS ORDERED: methylPREDNISolone SOD SUCC 40 MG/1 ML VIAL IV PUSH ONE (10:30)
[2017-03-16] MEDS: AZITHROMYCIN INJ 500 MG in SODIUM CHLOR 0.9% 250 ML INJ 250 ML IV SCH (10:40)
[2017-03-16] MEDS: SODIUM CHLOR 0.45% 1000 ML INJ 1,000 ML IV SCH (10:41)
--- NOTE | 2017-03-16 11:41 | MP ---
cc: RICO GREWAL M.D. DATE OF SURGERY: 03/15/2017. PREOPERATIVE DIAGNOSIS: Left hip displaced intertrochanteric fracture. POSTOPERATIVE DIAGNOSIS: Left hip displaced intertrochanteric fracture. PROCEDURE PERFORMED: Left hip open reduction internal fixation using Synthes 130 degree new trochanteric nail. SURGEON: iRco Grewal M.D. RUG CLEANER HAND: GEORGES Cedillo. ANESTHESIA: General. ESTIMATED BLOOD LOSS: 100 cc. DRAINS: None. SPECIMEN: None. COMPLICATIONS: None known. INDICATIONS FOR THE PROCEDURE: Gama Hewitt is an 89, almost 89-year-old male, who sustained a trip and fall and injured his left hip. He had a displaced intertrochanteric fracture. He was first brought to [facility] and transferred to [facility]. The patient is on Coumadin therapy for atrial fibrillation. His original INR was 2.2 last evening and then 2.3 this morning. With the displaced fracture and need for surgical repair, the recommendation is to proceed with transfusion of fresh frozen plasma and then proceed with the surgery and then resume his Coumadin treatment. The risks, benefits, and alternatives of treatment were thoroughly discussed. All of his questions were answered. A detailed informed consent was obtained. DESCRIPTION OF THE PROCEDURE IN DETAIL: The patient was brought into the operating room. He was placed under general anesthetic. He was placed on a well-padded fracture table. The left hip was prepped and draped in the usual sterile fashion. IV antibiotics were given. A time out was completed. It should be noted that the machinist first class, Juan Luis Roldan is an advanced registered nurse practitioner and his skill set was medically necessary to assist with the performance of the operation. We proceeded with fluoroscopic evaluation. We applied traction and manipulation and realigned the bone and then we proceeded with the use of fluoroscopy for helping us to determine where our incision would be superior to the greater trochanter and good position in the lateral plane. We proceeded with making our incision and spreading with a hemostat down to the point of the trochanter and then aligning with fluoroscopy initiating the guide pin and then confirming placement on the AP and lateral planes and then proceeding with over-reaming. We selected an 11 mm nadeen at 130 degree angle and packed this into position in good overall alignment. We then proceeded with determining placement of our second incision and then used the guide pin for placement to the lateral cortex into the head and neck area crossing the fracture site in good position in the AP and lateral planes and then proceeding to the measure, ream and place our 110 mm flange nail and then rotationally lock this. Traction released. Placement of a distal locking screw. Hard copy AP and lateral radiographs showed the final result. We irrigated out with copious amounts irrigation and proceeded to close with absorbable sutures. The patient was then awoken and returned to the recovery room in stable condition. MD DANIEL Nesbitt/SHAHLA /1:30 PM /11:25 AM
--- NOTE | 2017-03-16 14:14 | HHI.PR ---
Subjective Remarks Hypoxia present this morning. Patient improved with nonrebreather mask. ABG shows no abnormality which may suggest peripheral vascular disease as an etiology. However, Chest x-ray shows an area of consolidation. He is on a cephalosporin postop. Azithromycin added to broaden coverage. Objective Vital Signs Date Time Temp Pulse Resp B/P (MAP) Pulse Ox O2 Delivery O2 Flow Rate FiO2 03/16/17 10:36 95.3 72 19 126/57 (80) 95 03/16/17 10:07 95 Non-Rebreather 100 03/16/17 07:26 94 03/16/17 07:21 100 03/16/17 05:32 18 03/16/17 04:00 69 03/16/17 03:20 97.2 80 20 140/70 (93) 93 03/16/17 00:00 98.1 82 18 160/87 (111) 95 03/15/17 23:50 52 03/15/17 21:15 17 03/15/17 20:35 57 03/15/17 20:20 97.1 82 18 141/72 (95) 91 03/15/17 17:36 152/72 (98) 03/15/17 16:00 95.9 77 17 175/75 (108) 95 03/15/17 15:05 14 03/15/17 14:15 97.6 75 14 163/88 (113) 93 Nasal Cannula 4 Manual Cuff/Auscultation I/O 03/15/17 03/15/17 03/15/17 03/16/17 03/16/17 03/16/17 07:00 15:00 23:00 07:00 15:00 23:00 Intake Total 450 ml 1202 ml 1220 ml 580 ml Output Total 400 ml 350 ml 200 ml 925 ml Balance 50 ml 852 ml 1020 ml -345 ml Intake Oral 0 ml 120 ml 480 ml IV Total 450 ml 900 ml 1100 ml 100 ml FFP 302 ml Blood Product IV Normal Saline Flush 0 ml Output Urine Total 400 ml 300 ml 200 ml 925 ml Estimated Blood Loss 50 ml Bladder Scan Volume Amount 999 ml # Voids 1 # Bowel Movements 0 0 Result Diagram: 03/16/1739 03/16/1739 Objective Remarks GENERAL: NAD, A&Ox3 HEAD: Normocephalic. NECK: Supple, trachea midline. No lymphadenopathy. EYES: No scleral icterus. No injection or drainage. CARDIOVASCULAR: Regular rate and rhythm without murmurs, gallops, or rubs. RESPIRATORY: Breath sounds equal bilaterally. No accessory muscle use. GASTROINTESTINAL: Abdomen soft, non-tender, nondistended. MUSCULOSKELETAL: No cyanosis, or edema. Left hip wound and tenderness. SKIN: Warm and dry. NEURO: No focal neurological deficitis. A/P Problem List: (1) Intertrochanteric fracture of left femur ICD Code: S72.142A - Displaced intertrochanteric fracture of left femur, initial encounter for closed fracture (2) Hypertension ICD Code: I10 - Essential (primary) hypertension Status: Chronic (3) Depression ICD Code: F32.9 - Major depressive disorder, single episode, unspecified Status: Chronic (4) Atrial fibrillation ICD Code: I48.91 - Unspecified atrial fibrillation Status: Chronic (5) Hip fracture ICD Code: S72.009A - Fracture of unspecified part of neck of unspecified femur , initial encounter for closed fracture Status: Acute Assessment and Plan 89-year-old male admitted secondary to left hip fracture. Possible pneumonia Hypoxia Oxygen supplementation Azithromycin Cefazolin Follow pulse ox Systemic steroids started Monitor for improvement Left intertrochanteric fracture Orthopedics following. Patient is status post surgical repair. Plan for PT tomorrow. Continue pain treatments as needed. Atrial fibrillation on Coumadin rate controlled Coumadin was held for surgery but has been resumed today Monitor INR Continue digoxin Hypertension Continue baseline treatment Follow blood pressures Depression Continue SSRI DVT prophylaxis SCDs Coumadin Problem Qualifiers (1) Hip fracture: Qualified Codes: S72.002A - Fracture of unspecified part of neck of left femur , initial encounter for closed fracture Cong Ramey MD Mar 16, 2017 14:14
[2017-03-16] MEDS: WARFARIN SOD 2.5 MG TAB PO SCH (15:54)
[2017-03-16] MEDS ORDERED: RESP: ALBUTEROL 2.5 MG/IPRATROPIUM 0.5 MG NEB (SCH) NEB ONE (16:00)
[2017-03-16] MEDS ORDERED: FUROSEMIDE 40 MG/4 ML VIAL IV PUSH ONE (16:45)
--- NOTE | 2017-03-16 17:01 | PD.CONS ---
HPI Service Critical Care Medicine Consult Requested By [facility] Reason for Consult Hypoxemic Respiratory failure Primary Care Physician Astrid Zayas MD History of Present Illness 89 y/o man early following ORIF left hip for an intratrochanteric fracture. Oxygenation is marginal and not improving after conservative measures. We will bring him to the ICU for ongoing care. Fluid balance not problematic but CXR looks like pulmonary vascular congestion and bibasilar atelectasis. Review of Systems ROS Surprisingly comfortable compared to CXR. No chest pain. Past Family Social History Allergies: Coded Allergies: No Known Allergies (Verified Adverse Reaction, Unknown, 03/14/17) Past Medical History Past Medical History Hx Anticoagulant Therapy: Yes (Coumadin) Atrial Fibrillation: Yes Cardiovascular Problems: Yes (Afib) Diabetes: No Diminished Hearing: Yes ([place]) Hypertension: Yes Immunizations Current: Yes Past Surgical History Genitourinary Surgery: Yes (prostate) Social History Alcohol Use: Yes (occas. beer) Tobacco Use: No (quit at age 23 smoked cigs for a few years) Substance Use: No Allergies-Medications Allergies-Medications (Allergen,Severity, Reaction): Coded Allergies: No Known Allergies (Verified Adverse Reaction, Unknown, 03/14/17) Reported Meds & Prescriptions Reported Meds & Active Scripts Active K-Tab (Potassium Chloride) 20 Meq Tab 20 Meq PO DAILY Lasix (Furosemide) 20 Mg Tab 20 Mg PO DAILY Reported [Depression ] 1 Tab PO DAILY Digoxin 0.125 Mg Tab 0.125 Mg PO DAILY Amlodipine (Amlodipine Besylate) 10 Mg Tab 10 Mg PO DAILY Lasix (Furosemide) 20 Mg Tab 20 Mg PO DAILY Coumadin (Warfarin) 2.5 Mg Tab 2.5 Mg PO SUTUWETHSA Coumadin (Warfarin) 5 Mg Tab 5 Mg PO MOFR Physical Exam Vital Signs Vital Signs Date Time Temp Pulse Resp B/P (MAP) Pulse Ox O2 Delivery O2 Flow Rate FiO2 03/16/17 14:57 98.6 63 18 133/71 (91) 92 03/16/17 14:00 15 03/16/17 12:00 52 03/16/17 10:36 95.3 72 19 126/57 (80) 95 03/16/17 10:07 95 Non-Rebreather 100 03/16/17 08:00 69 03/16/17 07:26 94 03/16/17 07:21 100 03/16/17 05:32 18 03/16/17 04:00 69 03/16/17 03:20 97.2 80 20 140/70 (93) 93 03/16/17 00:00 98.1 82 18 160/87 (111) 95 03/15/17 23:50 52 03/15/17 21:15 17 03/15/17 20:35 57 03/15/17 20:20 97.1 82 18 141/72 (95) 91 03/15/17 17:36 152/72 (98) Physical Exam P Irreg 70s, SBP 159, RR 18, Sats 92% Head: Normal. Neck: Supple, airway widely patent. Lungs: Light crackles throughout, mildly labored pattern, no accessory muscle use. Heart: Irreg Irreg, 2/6 sys mur RSB, LSB, apex. Neck veins full to angle of jaw. NL S1S2 otherwise. No gallop. Abdomen: Soft, nontender, no guarding, BS active. Extremities: Warm, well perfused. Toes and fingers pink. Bilateral ankle edema. Neuro: Alert, cooperative. Wiggles toes and fingers to command. Laboratory Laboratory Tests Test 03/16/17 06:39 03/16/17 08:14 White Blood Count 11.0 Red Blood Count 3.18 Hemoglobin 10.0 Hematocrit 29.7 Mean Corpuscular Volume 93.4 Mean Corpuscular Hemoglobin 31.5 Mean Corpuscular Hemoglobin Concent 33.7 Red Cell Distribution Width 14.3 Platelet Count 180 Mean Platelet Volume 9.1 Neutrophils (%) (Auto) 75.9 Lymphocytes (%) (Auto) 9.0 Monocytes (%) (Auto) 14.5 Eosinophils (%) (Auto) 0.1 Basophils (%) (Auto) 0.5 Neutrophils # (Auto) 8.4 Lymphocytes # (Auto) 1.0 Monocytes # (Auto) 1.6 Eosinophils # (Auto) 0.0 Basophils # (Auto) 0.1 CBC Comment DIFF FINAL Differential Comment Prothrombin Time 14.2 Prothromb Time International Ratio 1.4 Blood Urea Nitrogen 18 Creatinine 1.15 Random Glucose 117 Total Protein 6.8 Albumin 3.4 Calcium Level 8.2 Alkaline Phosphatase 101 Aspartate Amino Transf (AST/SGOT) 32 Alanine Aminotransferase (ALT/SGPT) 17 Total Bilirubin 1.2 Sodium Level 138 Potassium Level 3.7 Chloride Level 102 Carbon Dioxide Level 28.0 Anion Gap 8 Estimat Glomerular Filtration Rate 60 Blood Gas Puncture Site RT RADIAL Blood Gas Patient Temperature 98.6 Blood Gas HCO3 27 Blood Gas Base Excess 2.4 Blood Gas Oxygen Saturation 94 Arterial Blood pH 7.42 Arterial Blood Partial Pressure CO2 42 Arterial Blood Partial Pressure O2 71 Arterial Blood Oxygen Content 12.5 Arterial Blood Carboxyhemoglobin 1.7 Arterial Blood Methemoglobin 0.3 Blood Gas Hemoglobin 9.5 Oxygen Delivery Device Non-Rebreathing Mask Blood Gas Liter Flow 15 Blood Gas Inspired Oxygen 100 Result Diagram: 03/16/1763803/16/17638 Assessment and Plan Problem List: (1) Acute hypoxemic respiratory failure ICD Code: J96.01 - Acute respiratory failure with hypoxia Status: Acute (2) Intertrochanteric fracture of left femur ICD Code: S72.142A - Displaced intertrochanteric fracture of left femur, initial encounter for closed fracture Status: Acute (3) Atrial fibrillation ICD Code: I48.91 - Unspecified atrial fibrillation Status: Chronic Assessment and Plan Plan: Hypoxemia - BiPAP NIV ventilation. - Lasix 40 now. 20 daily a.m. - IS. - D/C iv fluid. Permanent A-fib - Continue coumadin - Adjust digoxin dosing to heart rate and renal function. May hold one dose. - Replete K, Mag Ventricular ectopy - Largely benign - Replete mag, k. Left hip fracture - PT - Anticoagulation Systolic heart failure - Diuresis. - Daily weight, I&O. - Cardiac markers. Overall impression: Patient has chronic compensated systolic heart failure, now tipped over with pulmonary interstitial edema and critically ill. Compounded by basilar atelectasis. No bronchospasm. Follow cardiac markers, diurese, BiPAP. Critical Care 39 mins Problem Qualifiers (1) Atrial fibrillation: Qualified Codes: I48.2 - Chronic atrial fibrillation Melvin Khanna MD Mar 16, 2017 17:01
[2017-03-16] MEDS ORDERED: MAGNESIUM SULFATE 1 GM PREMIX 100 ML IV ONE (17:15)
[2017-03-16] MEDS: POTASSIUM CHLOR 10 MEQ PREMIX 100 ML IV SCH ×4 (17:42→22:29)
[2017-03-16] MEDS: RESP: ALBUTEROL 2.5 MG/IPRATROPIUM 0.5 MG NEB (SCH) NEB (19:53)
[2017-03-16] MEDS: methylPREDNISolone SOD SUCC 40 MG/1 ML VIAL IV PUSH SCH (20:17)
[2017-03-17] VITALS (16 sets, daily range): BP systolic 143–153; BP diastolic 65–83; PULSE 64–115; RESP 19–28; TEMP 97.9–98.6; O2SAT 86–97
[2017-03-17] MEDS: PCA - TOTAL MG MORPHINE DELIVERED PER SHIFT SCH ×4 (06:00→22:48)
[2017-03-17 06:02] LABS: CALCIUM 8.7 MG/DL (8.5-10.1); CREATININE 1.1 MG/DL (0.60-1.30); MAGNESIUM 2.5 MG/DL (1.5-2.5)
[2017-03-17] MEDS: methylPREDNISolone SOD SUCC 40 MG/1 ML VIAL IV PUSH SCH ×2 (08:16→20:24)
[2017-03-17] MEDS: DIGOXIN 0.125 MG TAB PO SCH (08:16)
[2017-03-17] MEDS: POTASSIUM CHLORIDE 20 MEQ CONTROLLED RELEASE TAB PO SCH (08:16)
[2017-03-17] MEDS: RESP: ALBUTEROL 2.5 MG/IPRATROPIUM 0.5 MG NEB (SCH) NEB ×3 (08:16→20:00)
[2017-03-17] MEDS: ESCITALOPRAM OXALATE 10 MG TAB PO SCH (08:16)
[2017-03-17] MEDS: DOCUSATE SODIUM 50 MG/SENNA 8.6 MG TAB PO SCH ×2 (08:17→20:25)
[2017-03-17] MEDS: MULTIVITAMINS/MINERALS THERAPEUTIC TAB PO SCH (08:17)
[2017-03-17] MEDS ORDERED: FUROSEMIDE 20 MG/2 ML VIAL IV PUSH SCH (09:00)
[2017-03-17] MEDS: oxyCODONE/ACETAMINOPHEN 5 MG/325 MG TAB PO PRN (10:07)
[2017-03-17] MEDS: AZITHROMYCIN INJ 500 MG in SODIUM CHLOR 0.9% 250 ML INJ 250 ML IV SCH (10:08)
--- NOTE | 2017-03-17 15:27 | HHI.CCPN ---
Subjective Remarks/Hospital Course 89 y/o man early following ORIF left hip for an intratrochanteric fracture. Oxygenation is marginal and not improving after conservative measures. We will bring him to the ICU for ongoing care. Fluid balance not problematic but CXR looks like pulmonary vascular congestion and bibasilar atelectasis. 03/17: Breathing more comfortably after diuresis. Transfer back to floor. Objective Vital Signs Date Time Temp Pulse Resp B/P (MAP) Pulse Ox O2 Delivery O2 Flow Rate FiO2 03/17/17 12:00 98.6 69 22 143/83 (103) 92 03/17/17 09:00 Partial Non-Rebreather 3.00 Nasal Cannula 03/16/17 20:04 65 Intake and Output 03/17/17 03/17/17 03/18/17 08:00 16:00 00:00 Intake Total 300 ml Output Total 1125 ml Balance -825 ml Result Diagram: 03/16/17 0639 03/17/17 0500 Objective Remarks P Irreg 80s, SBP 143, RR 13, Sats 98% Head: Normal. Neck: Supple, airway widely patent. Lungs: No crackles, no accessory muscle use. Comfortable. Heart: Irreg Irreg, 2/6 sys mur RSB, LSB, apex. NL S1S2 otherwise. No gallop. Abdomen: Soft, nontender, no guarding, BS active. Extremities: Warm, well perfused. Toes and fingers pink. Bilateral ankle edema. Neuro: Alert, cooperative. Wiggles toes and fingers to command. Confused today. A/P Problem List: (1) Acute hypoxemic respiratory failure ICD Code: J96.01 - Acute respiratory failure with hypoxia Status: Acute (2) Intertrochanteric fracture of left femur ICD Code: S72.142A - Displaced intertrochanteric fracture of left femur, initial encounter for closed fracture Status: Acute (3) Atrial fibrillation ICD Code: I48.91 - Unspecified atrial fibrillation Status: Chronic Assessment and Plan Plan: Hypoxemia - BiPAP NIV ventilation. - Lasix 40 now. 20 daily a.m. - IS. - D/C iv fluid. Permanent A-fib - Continue coumadin - Adjust digoxin dosing to heart rate and renal function. May hold one dose. - Replete K, Mag Ventricular ectopy - Largely benign - Replete mag, k. Left hip fracture - PT - Anticoagulation Systolic heart failure - Diuresis. - Daily weight, I&O. - Cardiac markers. Overall impression: Patient has chronic compensated systolic heart failure, briefly tipped over with pulmonary interstitial edema and compounded by basilar atelectasis. No bronchospasm. Much improved today. Needs more aggressive daily diuresis - watch renal function. Problem Qualifiers (1) Atrial fibrillation: Qualified Codes: I48.2 - Chronic atrial fibrillation Melvin Khanna MD Mar 17, 2017 15:27
[2017-03-17] MEDS ORDERED: WARFARIN SOD 5 MG TAB PO SCH (16:00)
--- NOTE | 2017-03-17 20:20 | PD.ORT.PN ---
Subjective Subjective Remarks Patient is confused. 4-point restratint. He states his hip is doing well. Objective Vitals Vital Signs Date Time Temp Pulse Resp B/P (MAP) Pulse Ox O2 Delivery O2 Flow Rate FiO2 03/17/17 20:00 98.3 115 24 149/70 (96) 97 03/17/17 20:00 Room Air 03/17/17 18:00 85 03/17/17 16:00 98.4 85 19 153/72 (99) 94 03/17/17 16:00 85 03/17/17 15:25 22 03/17/17 14:00 74 03/17/17 12:00 98.6 69 22 143/83 (103) 92 03/17/17 12:00 69 03/17/17 11:07 16 03/17/17 10:00 79 03/17/17 09:00 95 Partial Non-Rebreather 3.00 Nasal Cannula 03/17/17 08:23 97 Nasal Cannula 4.00 03/17/17 08:00 82 03/17/17 08:00 98.2 82 20 152/70 (97) 93 03/17/17 07:00 94 Partial Non-Rebreather 11.00 03/17/17 06:00 70 03/17/17 06:00 24 03/17/17 04:35 90 Partial Rebreather 11.00 03/17/17 04:00 68 03/17/17 04:00 97.9 68 28 144/65 (91) 89 03/17/17 02:00 64 03/17/17 01:50 94 Simple Mask 9.00 03/17/17 00:00 64 03/17/17 00:00 98.5 66 22 147/69 (95) 86 03/16/17 22:00 66 03/16/17 21:12 94 Nasal Cannula 5.00 I/O 03/16/17 03/16/17 03/16/17 03/17/17 03/17/17 03/17/17 07:00 15:00 23:00 07:00 15:00 23:00 Intake Total 580 ml 300 ml 600 ml Output Total 925 ml 1125 ml 625 ml Balance -345 ml -825 ml -25 ml Intake Oral 480 ml 300 ml 600 ml IV Total 100 ml Output Urine Total 925 ml 1125 ml 625 ml Bladder Scan Volume Amount 999 ml # Bowel Movements 0 0 0 Result Diagram: 03/16/17 0639 03/17/17 0500 Imaging Last 24 hours Impressions Chest X-Ray 03/16/17 0000 Signed Impressions: Service Date/Time: Thursday, March 16, 2017 07:57 - CONCLUSION: Pulmonary vascular congestion. Superimposed left lower lobe consolidation versus atelectasis and small pleural effusion also noted. Lazaro Henson MD Objective Remarks Left hip dressing mild drainage +sensation calves soft NVI Assessment & Plan Problem List: (1) Intertrochanteric fracture of left femur ICD Codes: S72.142A - Displaced intertrochanteric fracture of left femur, initial encounter for closed fracture Status: Acute Assessment and Plan POD #1 ORIF Left Hip IMN Pain management Daily physical therapy WBAT Resume Coumadin for A-fib and DVT prophylaxis D/C planning - anticipating SNF Monitor Juan Luis Roldan Mar 17, 2017 20:20
[2017-03-17] MEDS: diphenhydrAMINE HCL 25 MG CAP PO PRN (20:25)
[2017-03-17] MEDS: SODIUM CHLORIDE 0.9% FLUSH 10 ML FLUSH IVF PRN (20:25)
[2017-03-17] MEDS ORDERED: MELATONIN 5 MG TAB PO ONE (20:30)
[2017-03-18] VITALS (16 sets, daily range): BP systolic 117–160; BP diastolic 63–100; PULSE 52–99; RESP 13–25; TEMP 97.7–98.8; O2SAT 88–99
[2017-03-18] MEDS: oxyCODONE/ACETAMINOPHEN 5 MG/325 MG TAB PO PRN ×2 (00:32→05:26)
[2017-03-18 06:43] LABS: INTERNATIONAL NORMALIZED RATIO 1.2 RATIO; PROTHROMBIN TIME - PATIENT 12.2 SEC (9.8-11.6)
[2017-03-18 07:10] LABS: BICARBONATE 29.5 MEQ/L (21.0-32.0); CREATININE 1.15 MG/DL (0.60-1.30)
[2017-03-18] MEDS: RESP: ALBUTEROL 2.5 MG/IPRATROPIUM 0.5 MG NEB (SCH) NEB ×3 (08:04→21:21)
[2017-03-18] MEDS: FUROSEMIDE 40 MG/4 ML VIAL IV PUSH SCH (10:12)
[2017-03-18] MEDS: ESCITALOPRAM OXALATE 10 MG TAB PO SCH (10:12)
[2017-03-18] MEDS: DOCUSATE SODIUM 50 MG/SENNA 8.6 MG TAB PO SCH ×2 (10:12→20:53)
[2017-03-18] MEDS: DIGOXIN 0.125 MG TAB PO SCH (10:12)
[2017-03-18] MEDS: POTASSIUM CHLORIDE 20 MEQ CONTROLLED RELEASE TAB PO SCH (10:12)
[2017-03-18] MEDS: MULTIVITAMINS/MINERALS THERAPEUTIC TAB PO SCH (10:12)
--- NOTE | 2017-03-18 11:45 | HHI.CCPN ---
Subjective Remarks/Hospital Course 89 y/o man early following ORIF left hip for an intratrochanteric fracture. Oxygenation is marginal and not improving after conservative measures. We will bring him to the ICU for ongoing care. Fluid balance not problematic but CXR looks like pulmonary vascular congestion and bibasilar atelectasis. 03/17: Breathing more comfortably after diuresis. Transfer back to floor. Subjective 03/18: Afebrile. Placed in 4 portions overnight due to agitation. Received 1 dose of melatonin. Currently in 4 L nasal cannula. Will diurese more today. Resting in bed in no acute distress. Objective Vital Signs Date Time Temp Pulse Resp B/P (MAP) Pulse Ox O2 Delivery O2 Flow Rate FiO2 03/18/17 10:19 91 Nasal Cannula 4.00 03/18/17 06:33 19 03/18/17 06:00 99 03/18/17 04:00 97.7 156/65 (95) 03/16/17 20:04 65 Intake and Output 03/18/17 03/18/17 03/18/17 07:59 15:59 23:59 Intake Total 490 ml Output Total 450 ml Balance 40 ml Result Diagram: 03/16/17 0639 03/18/17 0514 Imaging Last Impressions Chest X-Ray 03/16/17 0000 Signed Impressions: Service Date/Time: Thursday, March 16, 2017 07:57 - CONCLUSION: Pulmonary vascular congestion. Superimposed left lower lobe consolidation versus atelectasis and small pleural effusion also noted. Lazaro Henson MD Hip X-Ray 03/15/17 0000 Signed Impressions: Service Date/Time: Wednesday, March 15, 2017 12:55 - CONCLUSION: Expected postoperative changes status post open rigid internal fixation Kaushik Rojas MD Head CT 03/14/17 1702 Signed Impressions: Service Date/Time: Tuesday, March 14, 2017 17:52 - CONCLUSION: No acute intracranial findings. Chronic ischemic findings. Lazaro Henson MD Femur X-Ray 03/14/17 0000 Signed Impressions: Service Date/Time: Tuesday, March 14, 2017 17:20 - CONCLUSION: Intertrochanteric fracture. Tru Tom MD FACR Objective Remarks GENERAL: 89-year-old male resting in bed in no acute distress on nasal cannula SKIN: Warm and dry. HEAD: Atraumatic. Normocephalic. EYES: Pupils equal and round. No scleral icterus. No injection or drainage. ENT: No nasal bleeding or discharge. Mucous membranes pink and moist. NECK: Trachea midline. No JVD. CARDIOVASCULAR: IRR. S1 and S2 no S4. RESPIRATORY: Few crackles appreciated in bases specifically left lower lobe/ posterior. No wheezing GASTROINTESTINAL: Abdomen soft, non-tender, nondistended. Hepatic and splenic margins not palpable. MUSCULOSKELETAL: Postoperative changes over left trochanter clean dry and intact. Peripheral pulses. Palpable DP/PT NEUROLOGICAL: Awake and alert. No obvious cranial nerve deficits. Motor grossly within normal limits. Five out of 5 muscle strength in the arms and legs. Normal speech. PSYCHIATRIC: Appropriate mood and affect; insight and judgment normal. A/P Assessment and Plan Neuro/Psych: Acute delirium Depression Insomnia [place] Acetaminophen 650 mg by mouth every 6 hours when necessary fever, pain less than 5 Written for hydrocodone/acetaminophen 5/325 one tablet every 4 hours as needed pain greater than 4 Morphine sulfate 2 mg IV every 3 hours when necessary breakthrough pain Melatonin 5 mill grams is night as needed for insomnia Continue escitalopram 10 mg by mouth daily for depression Check CT brain with warfarin use with altered mental status. Likely ICU delirium/medication induced. CT brain on admission 03/14 no acute intra-cranial findings CV: Atrial fibrillation- chronic rate controlled Hypertension Continue amlodipine 10 g by mouth daily for hypertension Continue digoxin 0.125 mg by mouth daily for atrial fibrillation. Check digoxin level in a.m. 03/19 As needed enalaprilat for hypertension Resp: Acute hypoxic hypercapnic respiratory failure secondary to pulmonary edema Nasal cannula to maintain saturations greater than or equal to 92% Incentive spirometry while awake Albuterol/ipratropium aerosols every 6 hours while awake with albuterol aerosols every 2 hours as needed for dyspnea Continue diuresis furosemide 40 mg IV daily. On 20 mg by mouth daily with 20 mEq potassium chloride supplementation Chest X-ray 03/18 revealed bilateral pulmonary edema with a left lower lobe infiltrate/effusion GI: History of inguinal hernia/left Advance diet as tolerated No indications for GI prophylaxis Docusate sodium/senna 1 tablet twice a day for bowel regimen : History of prostate cancer status post TURP Remove Patel Endo: Sliding-scale insulin if indicated to maintain euglycemia Renal: Creatinine downward trending. Monitor BMP while on higher dose furosemide Monitor urine output Accurate I's and O's Heme: Chronic warfarin use History of skin cancer Normocytic anemia Status post 2 units FFP prior to OR on 03/15 Continue warfarin 5 mill grams every Friday, Friday and 2.5 mg Friday, Friday, , Friday and Friday Daily INR. 1.2 on 03/18 ID: Postoperative cefazolin completed Monitor for infection MSK: Postop day #3 left ORIF Synthes IT nailing Left hip displaced intertrochanteric fracture. Weightbearing as tolerated orthopedics FEN: Replace electrolytes as clinically indicated Access - Utilize peripheral IV. Central line if indicated Prophylaxis - GI - not indicated - DVT - SCD/warfarin Level II follow-up Patient is stable from a critical care medicine standpoint. Assign care to hospitalist in a.m. 03/19. Transfer from ICU Neeraj Luo MD Mar 18, 2017 11:45
[2017-03-18] MEDS ORDERED: MELATONIN 5 MG TAB PO PRN (12:00)
[2017-03-18] MEDS ORDERED: RESP: ALBUTEROL 2.5 MG/3 ML NEB (PRN) NEB (12:15)
[2017-03-18] MEDS: AZITHROMYCIN INJ 500 MG in SODIUM CHLOR 0.9% 250 ML INJ 250 ML IV SCH (12:28)
[2017-03-18] MEDS: LACTULOSE SYRUP 20 GM/30 ML CUP PO PRN (14:11)
[2017-03-18] MEDS: cloNIDine HCL 0.1 MG TAB PO PRN (16:34)
[2017-03-18] MEDS: WARFARIN SOD 2.5 MG TAB PO SCH (16:35)
--- NOTE | 2017-03-18 17:55 | PD.ORT.PN ---
Subjective Subjective Remarks Patient appears comfortable. Pain controlled. Objective Vitals Vital Signs Date Time Temp Pulse Resp B/P (MAP) Pulse Ox O2 Delivery O2 Flow Rate FiO2 03/18/17 16:01 91 Nasal Cannula 4.00 03/18/17 10:19 91 Nasal Cannula 4.00 03/18/17 08:04 99 Nasal Cannula 3.00 03/18/17 06:33 19 03/18/17 06:00 99 03/18/17 05:44 22 03/18/17 04:00 58 03/18/17 04:00 97.7 58 24 156/65 (95) 94 03/18/17 02:00 52 03/18/17 00:45 96 Nasal Cannula 5.00 03/18/17 00:00 65 03/18/17 00:00 98.7 65 13 117/65 (82) 95 03/17/17 22:00 65 03/17/17 21:02 95 Nasal Cannula 4.00 03/17/17 20:00 98.3 115 24 149/70 (96) 97 03/17/17 20:00 Nasal Cannula 2.00 03/17/17 18:00 85 I/O 03/17/17 03/17/17 03/17/17 03/18/17 03/18/17 03/18/17 07:00 15:00 23:00 07:00 15:00 23:00 Intake Total 300 ml 600 ml 490 ml Output Total 1125 ml 625 ml 450 ml Balance -825 ml -25 ml 40 ml Intake Oral 300 ml 600 ml 240 ml IV Total 250 ml Output Urine Total 1125 ml 625 ml 450 ml # Bowel Movements 0 0 0 Result Diagram: 03/16/17 0639 03/18/17 0514 Other Results Laboratory Tests Test 03/18/17 05:14 Prothromb Time International Ratio 1.2 RATIO Prothrombin Time 12.2 SEC (9.8-11.6) Imaging Last 24 hours Impressions Chest X-Ray 03/16/17 0000 Signed Impressions: Service Date/Time: Thursday, March 16, 2017 07:57 - CONCLUSION: Pulmonary vascular congestion. Superimposed left lower lobe consolidation versus atelectasis and small pleural effusion also noted. Lazaro Henson MD Objective Remarks Left hip dressing mild drainage +sensation calves soft NVI Assessment & Plan Problem List: (1) Intertrochanteric fracture of left femur ICD Codes: S72.142A - Displaced intertrochanteric fracture of left femur, initial encounter for closed fracture Status: Acute Assessment and Plan POD #2 ORIF Left Hip IMN Pain management Daily physical therapy WBAT Resume Coumadin for A-fib and DVT prophylaxis D/C planning - anticipating SNF Monitor Juan Luis Roldan Mar 18, 2017 17:55
--- NOTE | 2017-03-18 20:15 | ECHRPT ---
Indication: HEART FAILURE CONCLUSIONS The left ventricular systolic function is normal with an estimated ejection fraction in the range of 60-65%. Normal left ventricular size. Mild concentric left ventricular hypertrophy. No regional wall motion abnormalities are present. The right atrial size is moderately dilated. Mild thickening of the mitral valve leaflets. Trace mitral valve regurgitation. Mild to moderate aortic valve regurgitation. There is mild tricuspid valve regurgitation. The estimated pulmonary arterial pressure is 58 mmHg. BP: 156 / 65 HR: 58 Rhythm: Sinus MEASUREMENTS (Male / Female) Normal Values Technical Quality:Good 2D ECHO LV Diastolic Diameter PLAX 5.1 cm 4.2 - 5.9 / 3.9 - 5.3 cm LV Systolic Diameter PLAX 3.5 cm IVS Diastolic Thickness 1.3 cm 0.6 - 1.0 / 0.6 - 0.9 cm LVPW Diastolic Thickness 1.3 cm 0.6 - 1.0 / 0.6 - 0.9 cm LV Relative Wall Thickness 0.5 RV Internal Dim ED PLAX 3.0 cm LVOT Diameter 2.2 cm LA Systolic Diameter LX 4.9 cm 3.0 - 4.0 / 2.7 - 3.8 cm LV Ejection Fraction MOD 4C 61.5 % LV Cardiac Index MOD 4C 2546.2 cm/minm LV Ejection Fraction 4C AL 63.3 % LV Cardiac Index 4C AL 2756.7 cm/minm M-MODE Aortic Root Diameter MM 3.7 cm LA Systolic Diameter MM 4.6 cm LA Ao Ratio MM 1.2 AV Cusp Separation MM 2.2 cm DOPPLER AI Peak Velocity 466.5 cm/s AI Peak Gradient 87.0 mmHg AI Pressure Half Time 420.5 ms LVOT Peak Velocity 109.0 cm/s LVOT Peak Gradient 4.8 mmHg MV Area PHT 4.2 cm Mitral E Point Velocity 99.7 cm/s Mitral A Point Velocity 40.0 cm/s Mitral E to A Ratio 2.5 LV E' Lateral Velocity 15.6 cm/s Mitral E to LV E' Lateral Ratio 6.4 LV E' Septal Velocity 7.7 cm/s Mitral E to LV E' Septal Ratio 12.9 TR Peak Velocity 345.0 cm/s TR Peak Gradient 47.6 mmHg Right Atrial Pressure 10.0 mmHg Pulmonary Artery Systolic Pressu 57.6 mmHg Right Ventricular Systolic Press 57.6 mmHg PV Peak Velocity 128.0 cm/s PV Peak Gradient 6.6 mmHg FINDINGS LEFT VENTRICLE The left ventricular systolic function is normal with an estimated ejection fraction in the range of 60-65%. Normal left ventricular size. Mild concentric left ventricular hypertrophy. No regional wall motion abnormalities are present. RIGHT VENTRICLE Normal right ventricular size and systolic function. LEFT ATRIUM The left atrial size is normal. RIGHT ATRIUM The right atrial size is moderately dilated. ATRIAL SEPTUM Normal atrial septal thickness without atrial level shunting by limited color doppler interrogation. AORTA The aortic root and proximal ascending aorta are normal in size on limited imaging. MITRAL VALVE Mild thickening of the mitral valve leaflets. Trace mitral valve regurgitation. AORTIC VALVE Trileaflet aortic valve. Mild to moderate aortic valve regurgitation. TRICUSPID VALVE Structurally normal tricuspid valve. There is mild tricuspid valve regurgitation. The estimated pulmonary arterial pressure is 57.6 mmHg. PULMONARY VALVE No pulmonary valve regurgitation or stenosis. VESSELS The inferior vena cava is normal in size. PERICARDIUM No pericardial effusion. Kenny Gautam MD, FACC (Electronically Signed) Final Date:18 March 2017 20:14
[2017-03-18] MEDS: diphenhydrAMINE HCL 25 MG CAP PO PRN (20:53)
[2017-03-18] MEDS: ACETAMINOPHEN/HYDROcodone 325 MG/5 MG TAB PO PRN (20:55)
[2017-03-19] VITALS (13 sets, daily range): BP systolic 110–157; BP diastolic 57–68; PULSE 59–77; RESP 13–24; TEMP 97.8–98.8; O2SAT 92–98
--- NOTE | 2017-03-19 05:22 | RADRPT ---
EXAM DATE/TIME: 03/19/2017 04:31 [facility] COMPARISON: CT BRAIN W/O CONTRAST, March 14, 2017, 17:52. INDICATIONS : Altered mental status. RADIATION DOSE: 56.35 CTDIvol (mGy) MEDICAL HISTORY : Hypertension. Carcinoma, prostate. SURGICAL HISTORY : None. ENCOUNTER: Initial ACUITY: 1 day PAIN SCALE: 10/10 LOCATION: cranial TECHNIQUE: Multiple contiguous axial images were obtained of the head. Using automated exposure control and adj ustment of the mA and/or kV according to patient size, radiation dose was kept as low as reasonably a chievable to obtain optimal diagnostic quality images. DICOM format image data is available electro nically for review and comparison. FINDINGS: CEREBRUM: The ventricles and cortical sulci are widened. There is scattered decreased density in the white ean er. No evidence of midline shift, mass lesion, hemorrhage or acute infarction. No extra-axial fluid collections are seen. POSTERIOR FOSSA: The cerebellum and brainstem are intact. The 4th ventricle is midline. The cerebellopontine angle i s unremarkable. EXTRACRANIAL: The visualized portion of the orbits is intact. SKULL: The calvaria is intact. No evidence of skull fracture. 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 CONCLUSION: 1. No acute abnormality seen. 2. Age-related atrophy and suspected small vessel ischemic change in the white matter. Michele Álvarez MD on March 19, 2017 at 5:17 Board Certified Radiologist. This report was verified electronically.
--- NOTE | 2017-03-19 06:40 | RADRPT ---
EXAM DATE/TIME: 03/19/2017 04:58 [facility] COMPARISON: CHEST SINGLE AP, March 16, 2017, 7:57. INDICATIONS : Shortness of breath. MEDICAL HISTORY : None. SURGICAL HISTORY : None. ENCOUNTER: Subsequent ACUITY: 4 - 6 days PAIN SCORE: Non-responsive. LOCATION: Bilateral chest FINDINGS: The heart size is enlarged. There is diffuse prominence of the interstitium. There is increased densi ty at the left base with silhouetting left hemidiaphragm. CONCLUSION: Cardiomegaly and diffuse interstitial process likely related to CHF. The increased density at the lef t base represent some superimposed atelectasis, consolidation or left effusion. Michele Álvarez MD on March 19, 2017 at 6:38 Board Certified Radiologist. This report was verified electronically.
[2017-03-19] MEDS: RESP: ALBUTEROL 2.5 MG/IPRATROPIUM 0.5 MG NEB (SCH) NEB ×3 (08:04→20:51)
[2017-03-19 08:21] LABS: HEMATOCRIT 27.3 % (39.0-51.0); HEMOGLOBIN 9.4 GM/DL (13.0-17.0); MEAN CELL VOLUME 92.3 FL (80.0-100.0); MEAN CORPUSCULAR HEMOGLOBIN 31.7 PG (27.0-34.0); MEAN CORPUSCULAR HGB CONC 34.3 % (32.0-36.0); MEAN PLATELET VOLUME 8.5 FL (7.0-11.0); PLATELET COUNT 189 TH/MM3 (150-450); RED BLOOD COUNT 2.95 MIL/MM3 (4.50-5.90); RED CELL DISTRIBUTION WIDTH 13.9 % (11.6-17.2)
[2017-03-19] MEDS: MULTIVITAMINS/MINERALS THERAPEUTIC TAB PO SCH (08:54)
[2017-03-19] MEDS: POTASSIUM CHLORIDE 20 MEQ CONTROLLED RELEASE TAB PO SCH (08:54)
[2017-03-19] MEDS: DOCUSATE SODIUM 50 MG/SENNA 8.6 MG TAB PO SCH ×2 (08:54→21:25)
[2017-03-19] MEDS: FUROSEMIDE 40 MG/4 ML VIAL IV PUSH SCH (08:54)
[2017-03-19] MEDS: ESCITALOPRAM OXALATE 10 MG TAB PO SCH (08:54)
[2017-03-19] MEDS: DIGOXIN 0.125 MG TAB PO SCH (08:56)
[2017-03-19 08:58] LABS: BICARBONATE 33.1 MEQ/L (21.0-32.0); CALCIUM 8.1 MG/DL (8.5-10.1); CREATININE 0.9 MG/DL (0.60-1.30); MAGNESIUM 2.3 MG/DL (1.5-2.5); PHOSPHORUS 2.2 MG/DL (2.5-4.9)
[2017-03-19 09:16] LABS: DIGOXIN 0.9 NG/ML (0.8-2.0)
[2017-03-19] MEDS: AZITHROMYCIN INJ 500 MG in SODIUM CHLOR 0.9% 250 ML INJ 250 ML IV SCH (11:22)
[2017-03-19] MEDS: WARFARIN SOD 2.5 MG TAB PO SCH (16:05)
--- NOTE | 2017-03-19 19:30 | HHI.CCPN ---
Subjective Remarks/Hospital Course 89 y/o man early following ORIF left hip for an intratrochanteric fracture. Oxygenation is marginal and not improving after conservative measures. We will bring him to the ICU for ongoing care. Fluid balance not problematic but CXR looks like pulmonary vascular congestion and bibasilar atelectasis. 03/17: Breathing more comfortably after diuresis. Transfer back to floor. 03/18: Afebrile. Placed in 4 portions overnight due to agitation. Received 1 dose of melatonin. Currently in 4 L nasal cannula. Will diurese more today. Resting in bed in no acute distress. Subjective 03/19: CT brain revealed no acute intracranial findings. Afebrile. 4 L nasal cannula. Continue with furosemide diuresis. Objective Vital Signs Date Time Temp Pulse Resp B/P (MAP) Pulse Ox O2 Delivery O2 Flow Rate FiO2 03/19/17 17:40 98.7 59 18 138/68 (91) 94 03/19/17 08:05 Nasal Cannula 4.00 03/19/17 03:15 40 Intake and Output 03/19/17 03/19/17 03/20/17 08:00 16:00 00:00 Intake Total 730 ml Output Total 900 ml 975 ml Balance -900 ml -245 ml Result Diagram: 03/19/17 0740 03/19/17 0740 Imaging Last Impressions Head CT 03/19/17 0600 Signed Impressions: Service Date/Time: Sunday, March 19, 2017 04:31 - CONCLUSION: 1. No acute abnormality seen. 2. Age-related atrophy and suspected small vessel ischemic change in the white matter. Michele Álvarez MD Chest X-Ray 03/19/17 0600 Signed Impressions: Service Date/Time: Sunday, March 19, 2017 04:58 - CONCLUSION: Cardiomegaly and diffuse interstitial process likely related to CHF. The increased density at the left base represent some superimposed atelectasis, consolidation or left effusion. Michele Álvarez MD Hip X-Ray 03/15/17 0000 Signed Impressions: Service Date/Time: Wednesday, March 15, 2017 12:55 - CONCLUSION: Expected postoperative changes status post open rigid internal fixation Kaushik Rojas MD Femur X-Ray 03/14/17 0000 Signed Impressions: Service Date/Time: Tuesday, March 14, 2017 17:20 - CONCLUSION: Intertrochanteric fracture. Tru Tom MD FACR Objective Remarks GENERAL: 89-year-old male resting in bed in no acute distress on nasal cannula SKIN: Warm and dry. HEAD: Atraumatic. Normocephalic. EYES: Pupils equal and round. No scleral icterus. No injection or drainage. ENT: No nasal bleeding or discharge. Mucous membranes pink and moist. NECK: Trachea midline. No JVD. CARDIOVASCULAR: IRR. S1 and S2 no S4. RESPIRATORY: Few crackles appreciated in bases specifically left lower lobe/ posterior. No wheezing GASTROINTESTINAL: Abdomen soft, non-tender, nondistended. Hepatic and splenic margins not palpable. MUSCULOSKELETAL: Postoperative changes over left trochanter clean dry and intact. Peripheral pulses. Palpable DP/PT NEUROLOGICAL: Awake and alert. No obvious cranial nerve deficits. Motor grossly within normal limits. Five out of 5 muscle strength in the arms and legs. Normal speech. PSYCHIATRIC: Appropriate mood and affect; insight and judgment normal. A/P Assessment and Plan Neuro/Psych: Acute delirium Depression Insomnia [place] Acetaminophen 650 mg by mouth every 6 hours when necessary fever, pain less than 5 Written for hydrocodone/acetaminophen 5/325 one tablet every 4 hours as needed pain greater than 4 Morphine sulfate 2 mg IV every 3 hours when necessary breakthrough pain Melatonin 5 mill grams is night as needed for insomnia Continue escitalopram 10 mg by mouth daily for depression Recheck CT brain with warfarin use with altered mental status 03/19 without acute intracranial findings. Likely ICU delirium/medication induced. CT brain on admission 03/14 no acute intra-cranial findings CV: Atrial fibrillation- chronic rate controlled Hypertension Continue amlodipine 10 g by mouth daily for hypertension Continue digoxin 0.125 mg by mouth daily for atrial fibrillation. Digoxin level in a.m. 03/19 was 0.9 As needed enalaprilat for hypertension 2-D echocardiogram The left ventricular systolic function is normal with an estimated ejection fraction in the range of 60-65%. Normal left ventricular size. Mild concentric left ventricular hypertrophy. No regional wall motion abnormalities are present. The right atrial size is moderately dilated. Mild thickening of the mitral valve leaflets. Trace mitral valve regurgitation. Mild to moderate aortic valve regurgitation. There is mild tricuspid valve regurgitation. The estimated pulmonary arterial pressure is 58 mmHg. Resp: Acute hypoxic hypercapnic respiratory failure secondary to pulmonary edema Nasal cannula to maintain saturations greater than or equal to 92% Incentive spirometry while awake Albuterol/ipratropium aerosols every 6 hours while awake with albuterol aerosols every 2 hours as needed for dyspnea Continue diuresis furosemide 40 mg IV daily. On 20 mg by mouth daily with 20 mEq potassium chloride supplementation Chest X-ray 03/18 revealed bilateral pulmonary edema with a left lower lobe infiltrate/effusion GI: History of inguinal hernia/left Regular diet No indications for GI prophylaxis Docusate sodium/senna 1 tablet twice a day for bowel regimen : History of prostate cancer status post TURP Remove Patel Endo: Sliding-scale insulin if indicated to maintain euglycemia Renal: Creatinine downward trending. Monitor BMP while on higher dose furosemide Monitor urine output Accurate I's and O's Heme: Chronic warfarin use History of skin cancer Normocytic anemia Status post 2 units FFP prior to OR on 03/15 Continue warfarin 5 mill grams every Friday, Friday and 2.5 mg Friday, Friday, , Friday and Friday Daily INR. 1.2 on 03/18 recheck in a.m. 03/20 ID: Postoperative cefazolin completed Monitor for infection MSK: Postop day #4 left ORIF Synthes IT nailing Left hip displaced intertrochanteric fracture. Weightbearing as tolerated orthopedics FEN: Replace electrolytes as clinically indicated Access - Utilize peripheral IV. Central line if indicated Prophylaxis - GI - not indicated - DVT - SCD/warfarin Level II follow-up Patient is stable from a critical care medicine standpoint. Assign care to hospitalist in a.m. 03/20. Transfer from ICU Neeraj Luo MD Mar 19, 2017 19:30
[2017-03-19] MEDS ORDERED: POTASSIUM PHOSPHATE INJ 30 MMOL in SODIUM CHLOR 0.9% 250 ML INJ 250 ML IV ONE (20:00)
[2017-03-19] MEDS: LACTULOSE SYRUP 20 GM/30 ML CUP PO PRN (21:25)
[2017-03-20 01:30] VITALS: BP 159/76; PULSE 81; RESP 18; TEMP 100; O2SAT 93
[2017-03-20] MEDS: ACETAMINOPHEN/HYDROcodone 325 MG/5 MG TAB PO PRN ×2 (03:56→13:05)
[2017-03-20 04:00] VITALS: PULSE 77
[2017-03-20 04:25] VITALS: BP 151/74; PULSE 78; RESP 17; TEMP 96.4; O2SAT 95
[2017-03-20 05:47] LABS: BASOPHIL % 0.2 % (0.0-2.0); EOSINOPHIL # 0.2 TH/MM3 (0-0.4); EOSINOPHIL % 2.1 % (0.0-4.0); HEMATOCRIT 27.7 % (39.0-51.0); HEMOGLOBIN 9.6 GM/DL (13.0-17.0); LYMPH % 11.4 % (9.0-44.0); MEAN CELL VOLUME 92.2 FL (80.0-100.0); MEAN CORPUSCULAR HEMOGLOBIN 31.8 PG (27.0-34.0); MEAN CORPUSCULAR HGB CONC 34.5 % (32.0-36.0); MEAN PLATELET VOLUME 8.5 FL (7.0-11.0); MONO % 14.5 % (0.0-8.0); MONOCYTE # 1.2 TH/MM3 (0-0.9); NEUT % 71.8 % (16.0-70.0); PLATELET COUNT 209 TH/MM3 (150-450); RED BLOOD COUNT 3.01 MIL/MM3 (4.50-5.90); RED CELL DISTRIBUTION WIDTH 13.6 % (11.6-17.2); WHITE BLOOD COUNT 8.4 TH/MM3 (4.0-11.0)
[2017-03-20 06:09] LABS: ALBUMIN 2.7 GM/DL (3.4-5.0); AST (GOT) 39 U/L (15-37); BICARBONATE 30.8 MEQ/L (21.0-32.0); BLOOD UREA NITROGEN 20 MG/DL (7-18); CALCIUM 8.1 MG/DL (8.5-10.1); CHLORIDE 102 MEQ/L (98-107); CREATININE 0.82 MG/DL (0.60-1.30); GLOMERULAR FILTRATION RATE 88 ML/MIN (>89); GLUCOSE,RANDOM 94 MG/DL (74-106); SODIUM (NA) 142 MEQ/L (136-145)
[2017-03-20 06:11] LABS: ALT (GPT) 24 U/L (12-78)
[2017-03-20 06:13] LABS: ALKALINE PHOSPHATASE 80 U/L (45-117); TOTAL BILIRUBIN ADULT 1.2 MG/DL (0.2-1.0); TOTAL PROTEIN 5.8 GM/DL (6.4-8.2)
[2017-03-20 06:35] LABS: INTERNATIONAL NORMALIZED RATIO 1.4 RATIO; PROTHROMBIN TIME - PATIENT 13.9 SEC (9.8-11.6)
--- NOTE | 2017-03-20 07:43 | RADRPT ---
EXAM DATE/TIME: 03/20/2017 06:26 [facility] COMPARISON: CHEST SINGLE AP, March 19, 2017, 4:58. INDICATIONS : Short of breath, evaluate left pleural effusion MEDICAL HISTORY : None. SURGICAL HISTORY : None. ENCOUNTER: Subsequent ACUITY: 2 days PAIN SCORE: 0/10 LOCATION: Left chest FINDINGS: Portable AP view of the chest demonstrate stable enlargement of the cardiac silhouette. Lungs are und erinflated. There is stable left basilar pleural-parenchymal opacity. No pneumothorax is identified. The bones and soft tissues demonstrate no acute finding. CONCLUSION: 1. Stable chest x-ray with left basilar opacity. This could represent pleural effusion with associate d volume loss and/or airspace consolidation. 2. Stable enlargement of the cardiac silhouette. Michele Mc MD on March 20, 2017 at 7:40 Board Certified Radiologist. This report was verified electronically.
[2017-03-20] MEDS: RESP: ALBUTEROL 2.5 MG/IPRATROPIUM 0.5 MG NEB (SCH) NEB ×2 (07:51→13:17)
[2017-03-20 07:53] VITALS: O2SAT 95
[2017-03-20 08:00] VITALS: BP 150/70; PULSE 74; RESP 18; TEMP 97.9; O2SAT 97
[2017-03-20] MEDS: FUROSEMIDE 40 MG/4 ML VIAL IV PUSH SCH (08:24)
[2017-03-20] MEDS: ESCITALOPRAM OXALATE 10 MG TAB PO SCH (08:24)
[2017-03-20] MEDS: MULTIVITAMINS/MINERALS THERAPEUTIC TAB PO SCH (08:24)
[2017-03-20] MEDS: DIGOXIN 0.125 MG TAB PO SCH (08:24)
[2017-03-20] MEDS: DOCUSATE SODIUM 50 MG/SENNA 8.6 MG TAB PO SCH (08:24)
[2017-03-20] MEDS: POTASSIUM CHLORIDE 20 MEQ CONTROLLED RELEASE TAB PO SCH (08:34)
[2017-03-20] MEDS ORDERED: HYDR-3516 PO (10:50)
--- NOTE | 2017-03-20 10:51 | HHI.DS ---
Discharge Summary Admission Date Mar 14, 2017 at 6:46 pm Discharge Date: Mar 20, 2017 Admitting Diagnosis left hip fracture (1) Hip fracture ICD Code: S72.009A - Fracture of unspecified part of neck of unspecified femur , initial encounter for closed fracture Status: Acute (2) Atrial fibrillation ICD Code: I48.91 - Unspecified atrial fibrillation Status: Chronic (3) Hypertension ICD Code: I10 - Essential (primary) hypertension Status: Chronic (4) Depression ICD Code: F32.9 - Major depressive disorder, single episode, unspecified Status: Chronic (5) Intertrochanteric fracture of left femur ICD Code: S72.142A - Displaced intertrochanteric fracture of left femur, initial encounter for closed fracture Status: Acute Procedures 03/15/2017 Left hip open reduction internal fixation using Synthes 130 degree new trochanteric nail. Echocardiogram 03/18/2017 The left ventricular systolic function is normal with an estimated ejection fraction in the range of 60-65%. Normal left ventricular size. Mild concentric left ventricular hypertrophy. No regional wall motion abnormalities are present. The right atrial size is moderately dilated. Mild thickening of the mitral valve leaflets. Trace mitral valve regurgitation. Mild to moderate aortic valve regurgitation. There is mild tricuspid valve regurgitation. The estimated pulmonary arterial pressure is 58 mmHg. Brief History - From Admission Mr. Hewitt is an 89 year-old male with a history of atrial fibrillation on Coumadin, hypertension, BPH, and arthritis who presented to the [facility] on 03/14/2017 after a slip and fall with subsequent left hip pain. X- ray in the ED showed left intertrochanteric fracture and the patient was transferred to the main campus for surgical correction in the morning. The patient reports severe left hip pain that is worse with movement and relieved by IV morphine. He reports that he slipped in some water while attempting to get into a car and did not hit his head or have a syncopal episode. He denies any recent fevers, chills, chest pain, shortness of breath, nausea, vomiting, or diarrhea. CBC/BMP: 03/20/17 0431 03/20/17 0431 Significant Findings Laboratory Tests Test 03/18/17 05:14 03/19/17 07:40 03/20/17 04:31 Prothrombin Time 12.2 SEC (9.8-11.6) 13.9 SEC (9.8-11.6) Blood Urea Nitrogen 31 MG/DL (7-18) 25 MG/DL (7-18) 20 MG/DL (7-18) Random Glucose 116 MG/DL (74-106) Estimat Glomerular Filtration Rate 60 ML/MIN (>89) 79 ML/MIN (>89) 88 ML/MIN (>89) B-Type Natriuretic Peptide 617 PG/ML (0-100) Red Blood Count 2.95 MIL/MM3 (4.50-5.90) 3.01 MIL/MM3 (4.50-5.90) Hemoglobin 9.4 GM/DL (13.0-17.0) 9.6 GM/DL (13.0-17.0) Hematocrit 27.3 % (39.0-51.0) 27.7 % (39.0-51.0) Calcium Level 8.1 MG/DL (8.5-10.1) 8.1 MG/DL (8.5-10.1) Phosphorus Level 2.2 MG/DL (2.5-4.9) Carbon Dioxide Level 33.1 MEQ/L (21.0-32.0) Neutrophils (%) (Auto) 71.8 % (16.0-70.0) Monocytes (%) (Auto) 14.5 % (0.0-8.0) Monocytes # (Auto) 1.2 TH/MM3 (0-0.9) Total Protein 5.8 GM/DL (6.4-8.2) Albumin 2.7 GM/DL (3.4-5.0) Aspartate Amino Transf (AST/SGOT) 39 U/L (15-37) Total Bilirubin 1.2 MG/DL (0.2-1.0) Imaging Last Impressions Chest X-Ray 03/20/17 0600 Signed Impressions: Service Date/Time: March 06:26 - CONCLUSION: 1. Stable chest x-ray with left basilar opacity. This could represent pleural effusion with associated volume loss and/or airspace consolidation. 2. Stable enlargement of the cardiac silhouette. Michele Mc MD Head CT 03/19/17 0600 Signed Impressions: Service Date/Time: Sunday, March 19, 2017 04:31 - CONCLUSION: 1. No acute abnormality seen. 2. Age-related atrophy and suspected small vessel ischemic change in the white matter. Michele Álvarez MD Hip X-Ray 03/15/17 0000 Signed Impressions: Service Date/Time: Wednesday, March 15, 2017 12:55 - CONCLUSION: Expected postoperative changes status post open rigid internal fixation Kaushik Rojas MD Femur X-Ray 03/14/17 0000 Signed Impressions: Service Date/Time: Tuesday, March 14, 2017 17:20 - CONCLUSION: Intertrochanteric fracture. Tru Tom MD FACR PE at Discharge GENERAL: Alert, NAD. SKIN: Warm and dry. HEAD: Normocephalic. EYES: No scleral icterus. No injection or drainage. NECK: Supple, trachea midline. No JVD or lymphadenopathy. CARDIOVASCULAR: Irregularly irregular without murmurs, gallops, or rubs. RESPIRATORY: Breath sounds equal bilaterally. No accessory muscle use. GASTROINTESTINAL: Abdomen soft, non-tender, nondistended. MUSCULOSKELETAL: No cyanosis, or edema. Status post left hip ORIF BACK: Nontender without obvious deformity. No CVA tenderness. Pt update on day of discharge Patient is currently doing well. Denies any chest pain, shortness of breath, fever or chills. Hospital Course Mr. Hewitt is an 89 year-old male with a history of atrial fibrillation on Coumadin, hypertension, BPH, and arthritis who presented to the [facility] on 03/14/2017 after a slip and fall with subsequent left hip pain. X- ray in the ED showed left intertrochanteric fracture and the patient was transferred to the main campus for surgical correction in the morning. He underwent left hip ORIF for intertrochanteric fracture. Post surgery patient was having breathing difficulty and was subsequently placed in the ICU where he received diuresis. Patient's care was transferred to hospitalist service on . He continued to do well. Had a bowel movement on 03/19/2017. Patient has Patel catheter. We would recommend starting Flomax 0.4 mg once a day. Patient will go to inpatient rehabilitation where bladder training can be done. Discussed with rehabilitation utility sales representative. Patient was subsequently discharged to [facility] inpatient rehabilitation. He is continued on rate control medication for atrial fibrillation as well as warfarin for atrial fib related anticoagulation. Would recommend a pharmacy consult to monitor and adjust warfarin dosage. Pt Condition on Discharge: Good Discharge Disposition: Rehab Inpatient Discharge Time: > 30 minutes Discharge Instructions DIET: Follow Instructions for: As Tolerated, No Restrictions Activities you can perform: Regular-No Restrictions New Medications: Tamsulosin (Flomax) 0.4 Mg Cap 0.4 MG PO HS for Manage Prostate Problems, #30 CAP 0 Refills Hydrocodone/Acetaminophen (Hydrocodone-Acetamin 5-325 mg) 5 Mg-325 Mg Tablet 1 TAB PO Q4H PRN for pain > 4, #30 TAB Melatonin (Melatonin) 5 Mg Tab 5 MG PO HS PRN for insomnia, #30 TAB Continued Medications: Amlodipine (Amlodipine) 10 Mg Tab 10 MG PO DAILY for Blood Pressure Management, #30 TAB 0 Refills Digoxin (Digoxin) 0.125 Mg Tab 0.125 MG PO DAILY for Regulate Heart Beat, #30 TAB 0 Refills Escitalopram (Escitalopram) 10 Mg Tab 10 MG PO DAILY, #30 TAB 0 Refills Furosemide (Lasix) 20 Mg Tab 20 MG PO DAILY, #30 TAB 0 Refills Potassium Chloride ER (K-Tab) 20 Meq Tab 20 MEQ PO DAILY for Electrolyte Replacement, #30 TAB 0 Refills Warfarin (Coumadin) 5 Mg Tab 5 MG PO MoFr for Blood Clot Prevention, #30 TAB 0 Refills Warfarin (Coumadin) 2.5 Mg Tab 2.5 MG PO SuTuWeThSa for Prevent Blood Clot, #30 TAB 0 Refills Discontinued Medications: Escitalopram (Escitalopram) 10 Mg Tab 10 MG PO DAILY, #30 TAB 0 Refills Furosemide (Lasix) 20 Mg Tab 20 MG PO DAILY, #30 TAB 0 Refills Rebecca Lopez DO Mar 20, 2017 10:51 am
[2017-03-20] MEDS ORDERED: MELA5 PO (10:52)
[2017-03-20] MEDS ORDERED: AZITHROMYCIN 250 MG TAB PO SCH (11:00)
[2017-03-20 12:00] VITALS: BP 137/66; PULSE 80; RESP 18; TEMP 97.1; O2SAT 96
[2017-03-20] MEDS ORDERED: TAMS5CAP PO (12:23)
== END 2017-03-20 14:38 | DRG 480 ==
LOC: PHED 16:28 → PHEDA 18:46 → N06A 22:31 → N03B 03-16 17:09 → N06A 03-19 17:39
PROVIDERS: ADMIT Hospitalist; ATTEND Hospitalist
PROC: 30233K1 Transfusion of Nonautologous Frozen Plasma into Peripheral Vein, Percutaneous Approach (ICD-10-PCS; 2017-03-15)
PROC: 0QS704Z Reposition Left Upper Femur with Internal Fixation Device, Open Approach (ICD-10-PCS; principal; 2017-03-15 11:53)
PROC: 5A09357 Assistance with Respiratory Ventilation, Less than 24 Consecutive Hours, Continuous Positive Airway Pressure (ICD-10-PCS; 2017-03-16)
DX: S72.142A Displaced intertrochanteric fracture of left femur, initial encounter for closed fracture (principal); J96.01 Acute respiratory failure with hypoxia; J96.02 Acute respiratory failure with hypercapnia; I50.22 Chronic systolic (congestive) heart failure; I11.0 Hypertensive heart disease with heart failure; J98.11 Atelectasis; I48.2 Chronic atrial fibrillation; I49.3 Ventricular premature depolarization; D64.9 Anemia, unspecified; F32.9 Major depressive disorder, single episode, unspecified; G47.00 Insomnia, unspecified; I08.3 Combined rheumatic disorders of mitral, aortic and tricuspid valves; R41.0 Disorientation, unspecified; R60.0 Localized edema; H91.90 Unspecified hearing loss, unspecified ear; W01.0XXA Fall on same level from slipping, tripping and stumbling without subsequent striking against object, initial encounter; Y92.89 Other specified places as the place of occurrence of the external cause; Z85.46 Personal history of malignant neoplasm of prostate; Z79.01 Long term (current) use of anticoagulants; Z85.828 Personal history of other malignant neoplasm of skin
CPT/HCPCS: 36430; 36600; 70450; 71045; 73502; 73552; 76000; 80048; 80053; 80162; 82805; 83735; 83880; 84100; 84484; 85025; 85027; 85384; 85610; 85730; 86850; 86900; 86901; 86927; 93005; 93306; 94003; 94150; 94640; 94664; C1713; J0456; J0690; J1580; J1940; J2270; J2405; J2920; J3010; J3430; J3475; J3480; J7050; J7120; P9017